=== PATIENT | male | born 1945 | race Two or more races ===

== ENCOUNTER 2021-01-19 18:14 | Emergency (ER) | payer OTHER ==
[2021-01-19 18:58] VITALS: BMI 23.3
[2021-01-19 19:36] LABS: BASO % 0.7 % (0-2.0); EOS % 3.5 % (0-4.5); HEMATOCRIT 27.7 % (35.4-49); HEMOGLOBIN 9.3 GM/dL (11.7-16.9); LYMPH % 34.7 % (8-40); MCH 29.9 pg (25.7-33.7); MCHC 33.6 g/dl (32.0-35.9); MEAN CELL VOLUME 88.8 fl (80-96); MEAN PLT VOLUME 7.8 fl (7.5-11.1); MONO % 17.1 % (3.8-10.2); PLATELET COUNT 176 10^3/uL (134-434); RBC 3.12 M/mm3 (4.00-5.60); RDW 14.3 % (11.9-15.9); WHITE BLOOD COUNT 4.4 K/mm3 (4.0-10.0)
[2021-01-19 19:43] LABS: INR 0.95 (0.83-1.09); PROTHROMBIN TIME (PATIENT) 10.6 SEC (9.7-13.0)
[2021-01-19 19:46] LABS: ACTIVATED PTT 31.1 SECONDS (25.2-36.5)
[2021-01-19 19:48] LABS: CHLORIDE 107 mmol/L (98-107); SODIUM 139 mmol/L (136-145)
[2021-01-19 19:51] LABS: ALBUMIN 3.1 g/dl (3.4-5.0); ANION GAP 5 MMOL/L (8-16); CO2 27 mmol/L (21-32); GLUCOSE,RANDOM 135 mg/dL (74-106)
[2021-01-19 19:54] LABS: CREATININE 2.5 mg/dL (0.55-1.3); SGOT/AST 25 U/L (15-37); SGPT/ALT 18 U/L (13-61)
[2021-01-19 19:56] LABS: BILIRUBIN,TOTAL 0.2 mg/dL (0.2-1); TOT PROT 7.1 g/dl (6.4-8.2)
[2021-01-19 19:57] LABS: ALK PHOS 85 U/L (45-117)
[2021-01-20 02:04] LABS: EPI CELLS 4 /uL (0-25.1); HYALINE CASTS 1 /uL (0-3.1); PH,URINE 8.5 (5.0-8.0); URINE APPEARANCE CLEAR; URINE BACTERIA 11 /uL (0-1359); URINE BILIRUBIN NEGATIVE (NEGATIVE); URINE COLOR YELLOW; URINE GLUCOSE (UA) NEGATIVE (NEGATIVE); URINE KETONE NEGATIVE (NEGATIVE); URINE LEUK ESTERASE NEGATIVE (NEGATIVE); URINE NITRITE NEGATIVE (NEGATIVE); URINE PROTEIN 3+ (NEGATIVE); URINE RBC 6 /uL (0-23.9); URINE UROBILINOGEN 0.2 mg/dL (0.2-1.0); URINE WBC 1 /uL (0-25.8)
[2021-01-20 02:52] VITALS: BP 145/57; PULSE 84; TEMP 100.1
[2021-01-20] MEDS ORDERED: ACETAMINOPHEN 325 MG TABLET (FP) PO ONE (02:58)
[2021-01-20] MEDS ORDERED: ACETAMINOPHEN 325 MG TABLET (FP) ONE (03:04)
== END 2021-01-20 03:15 | disposition home or self-care (01) ==
LOC: JER 18:14
DX: S00.03XA Contusion of scalp, initial encounter (principal); W19.XXXA Unspecified fall, initial encounter; Y92.9 Unspecified place or not applicable
CPT/HCPCS: 36415; 70450-TC; 71046-TC-FY; 72125-TC; 72170-TC-FY; 73552-TC-LT-FY; 73560-TC-LT-FY; 80053; 81003; 82550; 82553; 84484; 85025; 85610; 85730; 87077; 87086; 93005; 93010; 99284-25; C9803; U0003; U0005

== ENCOUNTER 2021-02-02 10:54 | Inpatient (IN) | payer OTHER ==
[2021-02-02 14:28] LABS: BASO % 0.6 % (0-2.0); EOS % 3.1 % (0-4.5); HEMATOCRIT 27.8 % (35.4-49); HEMOGLOBIN 9.2 GM/dL (11.7-16.9); LYMPH % 25.4 % (8-40); MCH 29.6 pg (25.7-33.7); MCHC 33.1 g/dl (32.0-35.9); MEAN CELL VOLUME 89.4 fl (80-96); MEAN PLT VOLUME 7.9 fl (7.5-11.1); NEUT % 56.9 % (42.8-82.8); PLATELET COUNT 207 10^3/uL (134-434); RBC 3.11 M/mm3 (4.00-5.60); WHITE BLOOD COUNT 4.4 K/mm3 (4.0-10.0)
[2021-02-02 14:52] LABS: CALCIUM 8.4 mg/dL (8.5-10.1)
[2021-02-02 14:53] LABS: ALBUMIN 3.1 g/dl (3.4-5.0); MAGNESIUM 3.3 mg/dL (1.8-2.4)
[2021-02-02 14:54] LABS: BLOOD UREA NITROGEN 41.8 mg/dL (7-18)
[2021-02-02 14:56] LABS: CREATININE 2.9 mg/dL (0.55-1.3)
[2021-02-02 14:58] LABS: BILIRUBIN,TOTAL 0.2 mg/dL (0.2-1); TOT PROT 7.3 g/dl (6.4-8.2)
[2021-02-02] MEDS ORDERED: LACTATED RINGERS SOLUTION 1000 ML INFUS.BAG IV ONE (15:00)
[2021-02-02] MEDS ORDERED: CALCIUM GLUC IN NACL, ISO-OSM 1 GM/50 ML BAG IVPB ONE (15:00)
[2021-02-02] MEDS ORDERED: INSULIN (NOVOLOG) ASPART 100 UNITS/ML 10ML VIAL SQ ONE (15:02)
[2021-02-02] MEDS ORDERED: DEXTROSE 50%-WATER - 25 GM/50 ML VIAL IVPUSH ONE (15:03)
[2021-02-02] MEDS ORDERED: DEXTROSE 50%-WATER 25 GM/50 ML DISP.SYRIN ONE (15:48)
[2021-02-02] MEDS ORDERED: CALCIUM GLUCONATE 10% - 1,000 MG/10 ML VIAL ONE (15:49)
[2021-02-02 17:23] LABS: EPI CELLS 14 /uL (0-25.1); HYALINE CASTS 1 /uL (0-3.1); URINE APPEARANCE CLEAR; URINE BACTERIA 7 /uL (0-1359); URINE BILIRUBIN NEGATIVE (NEGATIVE); URINE COLOR YELLOW; URINE GLUCOSE (UA) NEGATIVE (NEGATIVE); URINE KETONE NEGATIVE (NEGATIVE); URINE LEUK ESTERASE TRACE (NEGATIVE); URINE NITRITE NEGATIVE (NEGATIVE); URINE PROTEIN 4+ (NEGATIVE); URINE RBC 11 /uL (0-23.9); URINE UROBILINOGEN 0.2 mg/dL (0.2-1.0); URINE WBC 9 /uL (0-25.8)
[2021-02-02] MEDS ORDERED: SODIUM CHLORIDE 0.45% 1,000 ML IV SCH (20:00)
[2021-02-02] MEDS ORDERED: DOCUSATE SODIUM 100 MG CAPSULE (FP) PO SCH (20:00)
[2021-02-02] MEDS ORDERED: SODIUM ZIRCONIUM CYCLOSILICATE (LOKELMA) 5 GM PACKET PO ONE (20:21)
[2021-02-02 20:23] LABS: CALCIUM 8.3 mg/dL (8.5-10.1)
[2021-02-02 20:24] LABS: BLOOD UREA NITROGEN 42.2 mg/dL (7-18)
[2021-02-02 20:27] LABS: CREATININE 2.7 mg/dL (0.55-1.3)
[2021-02-02] MEDS ORDERED: levETIRAcetam 500 MG TABLET (FP) PO ONE (20:27)
[2021-02-02] MEDS ORDERED: SODIUM ZIRCONIUM CYCLOSILICATE (LOKELMA) 5 GM PACKET ONE (20:27)
[2021-02-02] MEDS ORDERED: hydrALAZINE HCL 25 MG TABLET (FP) ONE (20:27)
[2021-02-02] MEDS ORDERED: DOCUSATE SODIUM 100 MG CAPSULE (FP) PO ONE (20:28)
[2021-02-02] MEDS ORDERED: DONEPEZIL HCL 5 MG TABLET (FP) ONE (20:28)
[2021-02-02] MEDS: TERAZOSIN HCL 5 MG CAPSULE PO SCH (21:04)
[2021-02-02] MEDS: levETIRAcetam 500 MG TABLET (FP) PO SCH (21:05)
[2021-02-02] MEDS: DOCUSATE SODIUM 100 MG CAPSULE (FP) PO SCH (21:05)
[2021-02-02] MEDS: DONEPEZIL HCL 5 MG TABLET (FP) PO SCH (21:05)
[2021-02-02] MEDS: hydrALAZINE HCL 25 MG TABLET (FP) PO SCH (21:05)
[2021-02-02] MEDS ORDERED: ACETAMINOPHEN 325 MG TABLET (FP) PO PRN (21:40)
[2021-02-02] MEDS ORDERED: hydrALAZINE HCL 25 MG TABLET (FP) PO SCH (22:00)
[2021-02-03 04:33] VITALS: BMI 20.5
[2021-02-03] MEDS: CHOLECALCIFEROL (VIT D3) 1,000 UNIT (25 MCG) TABLET PO SCH (06:04)
[2021-02-03] MEDS: hydrALAZINE HCL 25 MG TABLET (FP) PO SCH ×3 (06:04→17:36)
[2021-02-03] MEDS: OXYBUTYNIN CHLORIDE 5 MG TABLET PO SCH ×2 (06:04→17:36)
[2021-02-03] MEDS: PANTOPRAZOLE 40 MG TABLET PO SCH (06:04)
[2021-02-03] MEDS ORDERED: PATIENT'S OWN MEDICATION (NON-FORMULARY) (Metoprolol Tartrate [Metoprolol Tartrate] 100 MG PO SCH (07:00)
[2021-02-03] MEDS ORDERED: PATIENT'S OWN MEDICATION (NON-FORMULARY) (Magnesium Oxide [Magnesium Oxide] 400 MG Tablet) PO SCH (07:00)
[2021-02-03 10:24] LABS: HEMATOCRIT 24.2 % (35.4-49); HEMOGLOBIN 8.1 GM/dL (11.7-16.9); MCH 29.9 pg (25.7-33.7); MCHC 33.5 g/dl (32.0-35.9); MEAN CELL VOLUME 89.3 fl (80-96); MEAN PLT VOLUME 8.2 fl (7.5-11.1); PLATELET COUNT 172 10^3/uL (134-434); RBC 2.71 M/mm3 (4.00-5.60); RDW 14.6 % (11.9-15.9); WHITE BLOOD COUNT 4.3 K/mm3 (4.0-10.0)
[2021-02-03] MEDS: amLODIPine BESYLATE 10 MG TABLET (FP) PO SCH (10:42)
[2021-02-03] MEDS: ASPIRIN COATED 81 MG TABLET.EC PO SCH (10:42)
[2021-02-03] MEDS: levETIRAcetam 500 MG TABLET (FP) PO SCH ×2 (10:42→21:09)
[2021-02-03 10:51] LABS: BLOOD UREA NITROGEN 36.3 mg/dL (7-18); MAGNESIUM 2.6 mg/dL (1.8-2.4)
[2021-02-03 10:54] LABS: CREATININE 2.6 mg/dL (0.55-1.3)
[2021-02-03 10:55] LABS: PHOSPHOROUS 3.7 mg/dL (2.5-4.9)
[2021-02-03] MEDS: LATANOPROST 0.005% OPHTH SOLN 2.5ML BOTTLE OU SCH (17:37)
[2021-02-03] MEDS ORDERED: PT OWN MED DRAWER 7, Y5N ONE ×2 (17:39→19:31)
[2021-02-03] MEDS: METOPROLOL TARTRATE 50 MG TABLET (FP) PO SCH (19:41)
[2021-02-03] MEDS: DONEPEZIL HCL 5 MG TABLET (FP) PO SCH (21:09)
[2021-02-03] MEDS: TERAZOSIN HCL 5 MG CAPSULE PO SCH (21:09)
[2021-02-03] MEDS: DOCUSATE SODIUM 100 MG CAPSULE (FP) PO SCH (21:09)
[2021-02-03] MEDS: HEPARIN NA (PORCINE) 5,000 UNITS/ML 1ML VIAL SQ SCH (21:09)
[2021-02-04] MEDS: METOPROLOL TARTRATE 50 MG TABLET (FP) PO SCH ×2 (06:01→16:23)
[2021-02-04] MEDS: CHOLECALCIFEROL (VIT D3) 1,000 UNIT (25 MCG) TABLET PO SCH (06:01)
[2021-02-04] MEDS: hydrALAZINE HCL 25 MG TABLET (FP) PO SCH ×3 (06:01→16:23)
[2021-02-04] MEDS: PANTOPRAZOLE 40 MG TABLET PO SCH (06:02)
[2021-02-04] MEDS: OXYBUTYNIN CHLORIDE 5 MG TABLET PO SCH ×2 (06:02→16:23)
[2021-02-04 09:35] LABS: HEMATOCRIT 24.8 % (35.4-49); HEMOGLOBIN 8.5 GM/dL (11.7-16.9); MCH 30.5 pg (25.7-33.7); MCHC 34.2 g/dl (32.0-35.9); MEAN CELL VOLUME 89.2 fl (80-96); MEAN PLT VOLUME 8.3 fl (7.5-11.1); PLATELET COUNT 189 10^3/uL (134-434); RBC 2.78 M/mm3 (4.00-5.60); RDW 14.4 % (11.9-15.9); WHITE BLOOD COUNT 4.1 K/mm3 (4.0-10.0)
[2021-02-04] MEDS: HEPARIN NA (PORCINE) 5,000 UNITS/ML 1ML VIAL SQ SCH ×2 (10:22→22:00)
[2021-02-04] MEDS: ASPIRIN COATED 81 MG TABLET.EC PO SCH (10:22)
[2021-02-04] MEDS: amLODIPine BESYLATE 10 MG TABLET (FP) PO SCH (10:23)
[2021-02-04] MEDS: levETIRAcetam 500 MG TABLET (FP) PO SCH ×2 (10:23→22:00)
[2021-02-04 10:24] LABS: BLOOD UREA NITROGEN 32.3 mg/dL (7-18); CALCIUM 8.2 mg/dL (8.5-10.1)
[2021-02-04 10:27] LABS: CHOLESTEROL 166 mg/dL (50-200); CREATININE 2.6 mg/dL (0.55-1.3); TRIGLYCERIDES 68 mg/dL (0-150)
[2021-02-04 10:28] LABS: LDL CHOLESTEROL (ONLY SJRH) 83 mg/dL (5-100)
[2021-02-04 10:30] LABS: HDL CHOLESTEROL 63 mg/dL (40-60)
[2021-02-04] MEDS: LATANOPROST 0.005% OPHTH SOLN 2.5ML BOTTLE OU SCH (16:39)
[2021-02-04] MEDS ORDERED: PT OWN MED DRAWER 7, Y5N ONE (20:53)
[2021-02-04] MEDS: DONEPEZIL HCL 5 MG TABLET (FP) PO SCH (21:59)
[2021-02-04] MEDS: TERAZOSIN HCL 5 MG CAPSULE PO SCH (21:59)
[2021-02-04] MEDS: DOCUSATE SODIUM 100 MG CAPSULE (FP) PO SCH (22:00)
[2021-02-05] MEDS: CHOLECALCIFEROL (VIT D3) 1,000 UNIT (25 MCG) TABLET PO SCH (06:32)
[2021-02-05] MEDS: hydrALAZINE HCL 25 MG TABLET (FP) PO SCH ×2 (06:32→11:36)
[2021-02-05] MEDS: OXYBUTYNIN CHLORIDE 5 MG TABLET PO SCH (06:32)
[2021-02-05] MEDS: METOPROLOL TARTRATE 50 MG TABLET (FP) PO SCH (06:32)
[2021-02-05] MEDS: PANTOPRAZOLE 40 MG TABLET PO SCH (06:32)
[2021-02-05] MEDS: HEPARIN NA (PORCINE) 5,000 UNITS/ML 1ML VIAL SQ SCH (09:07)
[2021-02-05] MEDS: amLODIPine BESYLATE 10 MG TABLET (FP) PO SCH (09:07)
[2021-02-05] MEDS: ASPIRIN COATED 81 MG TABLET.EC PO SCH (09:07)
[2021-02-05] MEDS: levETIRAcetam 500 MG TABLET (FP) PO SCH (09:07)
[2021-02-05 09:14] LABS: HEMATOCRIT 25.6 % (35.4-49); HEMOGLOBIN 8.7 GM/dL (11.7-16.9); MCH 30.4 pg (25.7-33.7); MCHC 33.9 g/dl (32.0-35.9); MEAN CELL VOLUME 89.5 fl (80-96); MEAN PLT VOLUME 8.2 fl (7.5-11.1); PLATELET COUNT 184 10^3/uL (134-434); RBC 2.86 M/mm3 (4.00-5.60); RDW 14.2 % (11.9-15.9); WHITE BLOOD COUNT 4.6 K/mm3 (4.0-10.0)
[2021-02-05 09:34] LABS: BLOOD UREA NITROGEN 36.4 mg/dL (7-18); CALCIUM 8.3 mg/dL (8.5-10.1); MAGNESIUM 2.3 mg/dL (1.8-2.4)
[2021-02-05 09:38] LABS: CREATININE 2.4 mg/dL (0.55-1.3)
[2021-02-05 15:47] VITALS: BP 157/68; PULSE 57; TEMP 97.8
== END 2021-02-05 15:52 | disposition home or self-care (01) | DRG 684 ==
LOC: JER 10:54 → JERBED 15:04 → J8W 02-03 03:59
PROVIDERS: ATTEND Internal Medicine
DX: N17.9 Acute kidney failure, unspecified (principal); I25.10 Atherosclerotic heart disease of native coronary artery without angina pectoris; F03.90 Unspecified dementia, unspecified severity, without behavioral disturbance, psychotic disturbance, mood disturbance, and anxiety; I12.9 Hypertensive chronic kidney disease with stage 1 through stage 4 chronic kidney disease, or unspecified chronic kidney disease; R25.1 Tremor, unspecified; N18.30 Chronic kidney disease, stage 3 unspecified; K21.9 Gastro-esophageal reflux disease without esophagitis; E87.5 Hyperkalemia; G40.909 Epilepsy, unspecified, not intractable, without status epilepticus
CPT/HCPCS: 36415; 70450-TC; 71045-TC-FY; 72125-TC; 76775-TC; 80048; 80053; 80061; 80177; 81003; 82550; 82553; 82570; 82962; 83036; 83735; 84100; 84156; 85025; 85027; 87077; 87086; 93005; 93010; 97116-GP; 97161-GP; 99285-25; C9803; J1644; U0003; U0005

== ENCOUNTER 2021-02-22 18:48 | Inpatient (IN) | payer OTHER ==
[2021-02-22] MEDS ORDERED: ACETAMINOPHEN 1000 MG/100 ML BAG IVPB ONE (19:56)
[2021-02-22] MEDS ORDERED: ACETAMINOPHEN INJECTION 100 ML IVPB ONE (20:39)
[2021-02-22 20:51] LABS: EPI CELLS 3 /uL (0-25.1); HYALINE CASTS 0 /uL (0-3.1); PH,URINE 7.5 (5.0-8.0); URINE APPEARANCE CLEAR; URINE BACTERIA 6 /uL (0-1359); URINE BILIRUBIN NEGATIVE (NEGATIVE); URINE COLOR YELLOW; URINE GLUCOSE (UA) NEGATIVE (NEGATIVE); URINE KETONE NEGATIVE (NEGATIVE); URINE LEUK ESTERASE NEGATIVE (NEGATIVE); URINE NITRITE NEGATIVE (NEGATIVE); URINE PROTEIN 3+ (NEGATIVE); URINE RBC 7 /uL (0-23.9); URINE UROBILINOGEN 0.2 mg/dL (0.2-1.0); URINE WBC 2 /uL (0-25.8)
[2021-02-22 21:04] LABS: CHLORIDE 108 mmol/L (98-107); SODIUM 137 mmol/L (136-145)
[2021-02-22 21:06] LABS: ANION GAP 6 MMOL/L (8-16); BLOOD UREA NITROGEN 37.9 mg/dL (7-18); CO2 24 mmol/L (21-32); GLUCOSE,RANDOM 94 mg/dL (74-106); LIPASE 59 U/L (73-393); MAGNESIUM 3.1 mg/dL (1.8-2.4)
[2021-02-22 21:07] LABS: BASO % 0.9 % (0-2.0); EOS % 2.4 % (0-4.5); HEMATOCRIT 25.8 % (35.4-49); HEMOGLOBIN 8.6 GM/dL (11.7-16.9); LYMPH % 29.7 % (8-40); MCH 29.6 pg (25.7-33.7); MCHC 33.2 g/dl (32.0-35.9); MEAN CELL VOLUME 89.2 fl (80-96); MEAN PLT VOLUME 8.5 fl (7.5-11.1); MONO % 15.5 % (3.8-10.2); NEUT % 51.5 % (42.8-82.8); PLATELET COUNT 195 10^3/uL (134-434); RBC 2.89 M/mm3 (4.00-5.60); RDW 14.3 % (11.9-15.9); WHITE BLOOD COUNT 4.9 K/mm3 (4.0-10.0)
[2021-02-22 21:09] LABS: CREATININE 2.8 mg/dL (0.55-1.3); SGOT/AST 16 U/L (15-37); SGPT/ALT 14 U/L (13-61)
[2021-02-22 21:11] LABS: BILIRUBIN,TOTAL 0.3 mg/dL (0.2-1); TOT PROT 6.6 g/dl (6.4-8.2)
[2021-02-22 21:12] LABS: ALK PHOS 78 U/L (45-117)
[2021-02-22 21:18] LABS: INR 1.05 (0.83-1.09); PROTHROMBIN TIME (PATIENT) 11.8 SEC (9.7-13.0)
[2021-02-22 21:20] LABS: ACTIVATED PTT 32.5 SECONDS (25.2-36.5)
[2021-02-23] MEDS ORDERED: ACETAMINOPHEN 325 MG TABLET (FP) PO PRN (04:38)
[2021-02-23] MEDS ORDERED: ASPIRIN 81 MG CHEWABLE TABLETS ONE (06:41)
[2021-02-23] MEDS ORDERED: amLODIPine BESYLATE 5 MG TABLET (FP) ONE (06:42)
[2021-02-23] MEDS ORDERED: levETIRAcetam 500 MG TABLET (FP) PO ONE (06:42)
[2021-02-23] MEDS ORDERED: HEPARIN NA (PORCINE) 5,000 UNITS/ML 1ML VIAL ONE (06:42)
[2021-02-23] MEDS ORDERED: CHOLECALCIFEROL (VIT D3) 1,000 UNIT (25 MCG) TABLET ONE (06:42)
[2021-02-23] MEDS: HEPARIN NA (PORCINE) 5,000 UNITS/ML 1ML VIAL SQ SCH ×3 (06:49→21:36)
[2021-02-23] MEDS: levETIRAcetam 500 MG TABLET (FP) PO SCH ×2 (06:49→21:00)
[2021-02-23] MEDS: ASPIRIN COATED 81 MG TABLET.EC PO SCH (06:49)
[2021-02-23] MEDS: CHOLECALCIFEROL (VIT D3) 1,000 UNIT (25 MCG) TABLET PO SCH (06:49)
[2021-02-23] MEDS: METOPROLOL TARTRATE 50 MG TABLET (FP) PO SCH ×2 (06:50→16:57)
[2021-02-23] MEDS: amLODIPine BESYLATE 5 MG TABLET (FP) PO SCH (06:50)
[2021-02-23] MEDS ORDERED: LACTOSE REDUCED FOOD PO SCH (07:00)
[2021-02-23] MEDS: PANTOPRAZOLE 40 MG TABLET PO SCH (07:58)
[2021-02-23] MEDS: OXYBUTYNIN CHLORIDE 5 MG TABLET PO SCH ×2 (07:58→17:15)
[2021-02-23] MEDS ORDERED: METOPROLOL TARTRATE 25 MG TABLET (FP) ONE (10:25)
[2021-02-23] MEDS ORDERED: METOPROLOL TARTRATE 50 MG TABLET (FP) ONE (10:26)
[2021-02-23 13:49] LABS: CALCIUM 8.3 mg/dL (8.5-10.1)
[2021-02-23 13:50] LABS: ALBUMIN 2.9 g/dl (3.4-5.0); BLOOD UREA NITROGEN 35.9 mg/dL (7-18)
[2021-02-23 13:53] LABS: PHOSPHOROUS 3.8 mg/dL (2.5-4.9)
[2021-02-23 13:54] LABS: URIC ACID 9.5 mg/dL (2.6-7.2)
[2021-02-23 13:55] LABS: BILIRUBIN,TOTAL 0.3 mg/dL (0.2-1)
[2021-02-23 13:57] LABS: TOT PROT 6.5 g/dl (6.4-8.2)
[2021-02-23] MEDS: hydrALAZINE HCL 25 MG TABLET (FP) PO SCH ×2 (14:20→21:35)
[2021-02-23 14:26] LABS: CREATININE 2.5 mg/dL (0.55-1.3)
[2021-02-23] MEDS: ACETAMINOPHEN 325 MG TABLET (FP) PO PRN (16:57)
[2021-02-23] MEDS: LATANOPROST 0.005% OPHTH SOLN 2.5ML BOTTLE OU SCH (17:14)
[2021-02-23 18:47] LABS: BASO % 0.5 % (0-2.0); EOS % 2.6 % (0-4.5); HEMATOCRIT 26.9 % (35.4-49); HEMOGLOBIN 8.8 GM/dL (11.7-16.9); LYMPH % 30.1 % (8-40); MCH 29.2 pg (25.7-33.7); MCHC 32.5 g/dl (32.0-35.9); MEAN CELL VOLUME 89.7 fl (80-96); MEAN PLT VOLUME 8.5 fl (7.5-11.1); MONO % 13.7 % (3.8-10.2); NEUT % 53.1 % (42.8-82.8); PLATELET COUNT 188 10^3/uL (134-434); RDW 13.9 % (11.9-15.9); WHITE BLOOD COUNT 4.3 K/mm3 (4.0-10.0)
[2021-02-23 19:05] LABS: GAMMA GLUTAMYL TRANSPEPTIDASE 21 U/L (5-85)
[2021-02-23] MEDS: TERAZOSIN HCL 5 MG CAPSULE PO SCH (21:00)
[2021-02-23] MEDS: DOCUSATE SODIUM 100 MG CAPSULE (FP) PO SCH (21:00)
[2021-02-23] MEDS: DONEPEZIL HCL 5 MG TABLET (FP) PO SCH (21:00)
[2021-02-23] MEDS ORDERED: PT OWN MED DRAWER 7, Y5N ONE (21:06)
[2021-02-24] MEDS: ACETAMINOPHEN 325 MG TABLET (FP) PO PRN ×2 (00:32→21:16)
[2021-02-24] MEDS ORDERED: levETIRAcetam 250 MG TABLET PO ONE (05:46)
[2021-02-24] MEDS: levETIRAcetam 500 MG TABLET (FP) PO SCH ×2 (06:07→21:17)
[2021-02-24] MEDS: ASPIRIN COATED 81 MG TABLET.EC PO SCH (06:08)
[2021-02-24] MEDS: amLODIPine BESYLATE 5 MG TABLET (FP) PO SCH (06:08)
[2021-02-24] MEDS: METOPROLOL TARTRATE 50 MG TABLET (FP) PO SCH ×2 (06:08→15:54)
[2021-02-24] MEDS: CHOLECALCIFEROL (VIT D3) 1,000 UNIT (25 MCG) TABLET PO SCH (06:08)
[2021-02-24] MEDS: PANTOPRAZOLE 40 MG TABLET PO SCH (06:09)
[2021-02-24] MEDS: OXYBUTYNIN CHLORIDE 5 MG TABLET PO SCH ×2 (06:09→15:56)
[2021-02-24] MEDS: HEPARIN NA (PORCINE) 5,000 UNITS/ML 1ML VIAL SQ SCH ×3 (06:09→21:17)
[2021-02-24] MEDS: hydrALAZINE HCL 25 MG TABLET (FP) PO SCH ×3 (06:09→21:16)
[2021-02-24 09:24] LABS: HEMATOCRIT 26.9 % (35.4-49); HEMOGLOBIN 8.9 GM/dL (11.7-16.9); MCH 29.6 pg (25.7-33.7); MCHC 33.2 g/dl (32.0-35.9); MEAN CELL VOLUME 89.1 fl (80-96); MEAN PLT VOLUME 8.3 fl (7.5-11.1); PLATELET COUNT 189 10^3/uL (134-434); RBC 3.01 M/mm3 (4.00-5.60); RDW 14.3 % (11.9-15.9); WHITE BLOOD COUNT 4.1 K/mm3 (4.0-10.0)
[2021-02-24 09:47] LABS: ALBUMIN 2.8 g/dl (3.4-5.0); CALCIUM 8.2 mg/dL (8.5-10.1)
[2021-02-24 09:48] LABS: BLOOD UREA NITROGEN 34.3 mg/dL (7-18)
[2021-02-24 09:51] LABS: CREATININE 2.4 mg/dL (0.55-1.3)
[2021-02-24 09:52] LABS: BILIRUBIN,TOTAL 0.5 mg/dL (0.2-1); TOT PROT 6.4 g/dl (6.4-8.2)
[2021-02-24] MEDS ORDERED: PT OWN MED DRAWER 7, Y5N ONE ×2 (15:53→20:45)
[2021-02-24] MEDS: LATANOPROST 0.005% OPHTH SOLN 2.5ML BOTTLE OU SCH (15:57)
[2021-02-24] MEDS: DONEPEZIL HCL 5 MG TABLET (FP) PO SCH (21:16)
[2021-02-24] MEDS: TERAZOSIN HCL 5 MG CAPSULE PO SCH (21:17)
[2021-02-24] MEDS: DOCUSATE SODIUM 100 MG CAPSULE (FP) PO SCH (21:17)
[2021-02-25] MEDS: CHOLECALCIFEROL (VIT D3) 1,000 UNIT (25 MCG) TABLET PO SCH (06:06)
[2021-02-25] MEDS: hydrALAZINE HCL 25 MG TABLET (FP) PO SCH ×3 (06:06→21:55)
[2021-02-25] MEDS: ASPIRIN COATED 81 MG TABLET.EC PO SCH (06:06)
[2021-02-25] MEDS: levETIRAcetam 500 MG TABLET (FP) PO SCH ×2 (06:06→21:58)
[2021-02-25] MEDS: OXYBUTYNIN CHLORIDE 5 MG TABLET PO SCH ×2 (06:06→16:29)
[2021-02-25] MEDS: PANTOPRAZOLE 40 MG TABLET PO SCH (06:06)
[2021-02-25] MEDS: amLODIPine BESYLATE 5 MG TABLET (FP) PO SCH (06:06)
[2021-02-25] MEDS: METOPROLOL TARTRATE 50 MG TABLET (FP) PO SCH ×2 (06:06→15:15)
[2021-02-25] MEDS: ACETAMINOPHEN 325 MG TABLET (FP) PO PRN (06:07)
[2021-02-25] MEDS: HEPARIN NA (PORCINE) 5,000 UNITS/ML 1ML VIAL SQ SCH ×3 (06:07→21:55)
[2021-02-25 09:47] LABS: HEMATOCRIT 26.7 % (35.4-49); HEMOGLOBIN 8.9 GM/dL (11.7-16.9); MCH 29.9 pg (25.7-33.7); MCHC 33.5 g/dl (32.0-35.9); MEAN CELL VOLUME 89.3 fl (80-96); MEAN PLT VOLUME 8.6 fl (7.5-11.1); PLATELET COUNT 196 10^3/uL (134-434); RBC 2.99 M/mm3 (4.00-5.60); RDW 13.9 % (11.9-15.9); WHITE BLOOD COUNT 4.2 K/mm3 (4.0-10.0)
[2021-02-25 10:08] LABS: CALCIUM 7.9 mg/dL (8.5-10.1)
[2021-02-25 10:09] LABS: ALBUMIN 2.5 g/dl (3.4-5.0); BLOOD UREA NITROGEN 34.2 mg/dL (7-18); MAGNESIUM 2.5 mg/dL (1.8-2.4)
[2021-02-25 10:12] LABS: CREATININE 2.6 mg/dL (0.55-1.3); PHOSPHOROUS 4.2 mg/dL (2.5-4.9)
[2021-02-25 10:14] LABS: BILIRUBIN,TOTAL 0.4 mg/dL (0.2-1); TOT PROT 6.3 g/dl (6.4-8.2)
[2021-02-25 11:16] LABS: ERYTHROCYTE SEDIMENTATION RATE 73 mm/hr (0-20)
[2021-02-25 12:57] VITALS: BMI 22.8
[2021-02-25] MEDS ORDERED: PT OWN MED DRAWER 7, Y5N ONE ×2 (15:05→21:33)
[2021-02-25] MEDS: LATANOPROST 0.005% OPHTH SOLN 2.5ML BOTTLE OU SCH (16:29)
[2021-02-25] MEDS: DOCUSATE SODIUM 100 MG CAPSULE (FP) PO SCH (21:55)
[2021-02-25] MEDS: DONEPEZIL HCL 5 MG TABLET (FP) PO SCH (21:55)
[2021-02-25] MEDS: TERAZOSIN HCL 5 MG CAPSULE PO SCH (21:56)
[2021-02-26 00:07] LABS: CARCINOEMBRYONIC ANTIGEN 3.7 ng/mL (0.0-4.7)
[2021-02-26] MEDS: amLODIPine BESYLATE 5 MG TABLET (FP) PO SCH (06:17)
[2021-02-26] MEDS: hydrALAZINE HCL 25 MG TABLET (FP) PO SCH ×3 (06:17→21:26)
[2021-02-26] MEDS: ASPIRIN COATED 81 MG TABLET.EC PO SCH (06:17)
[2021-02-26] MEDS: CHOLECALCIFEROL (VIT D3) 1,000 UNIT (25 MCG) TABLET PO SCH (06:18)
[2021-02-26] MEDS: PANTOPRAZOLE 40 MG TABLET PO SCH (06:18)
[2021-02-26] MEDS: HEPARIN NA (PORCINE) 5,000 UNITS/ML 1ML VIAL SQ SCH ×3 (06:18→21:25)
[2021-02-26] MEDS ORDERED: PT OWN MED DRAWER 7, Y5N ONE ×3 (06:19→17:13)
[2021-02-26] MEDS: METOPROLOL TARTRATE 50 MG TABLET (FP) PO SCH ×2 (06:20→17:15)
[2021-02-26] MEDS: levETIRAcetam 500 MG TABLET (FP) PO SCH ×2 (06:20→21:30)
[2021-02-26] MEDS: OXYBUTYNIN CHLORIDE 5 MG TABLET PO SCH ×2 (06:22→17:15)
[2021-02-26 11:30] LABS: HEMATOCRIT 25.3 % (35.4-49); HEMOGLOBIN 8.4 GM/dL (11.7-16.9); MCH 29.8 pg (25.7-33.7); MCHC 33.4 g/dl (32.0-35.9); MEAN CELL VOLUME 89.3 fl (80-96); MEAN PLT VOLUME 8.6 fl (7.5-11.1); PLATELET COUNT 189 10^3/uL (134-434); RBC 2.83 M/mm3 (4.00-5.60); RDW 14.1 % (11.9-15.9)
[2021-02-26 11:57] LABS: CALCIUM 7.7 mg/dL (8.5-10.1)
[2021-02-26 11:58] LABS: BLOOD UREA NITROGEN 34.1 mg/dL (7-18)
[2021-02-26 12:01] LABS: CREATININE 2.7 mg/dL (0.55-1.3)
[2021-02-26 13:12] LABS: HOMOCYSTINE-PLASMA OR SERUM 16.6 umol/L (0.0-19.2)
[2021-02-26] MEDS: LATANOPROST 0.005% OPHTH SOLN 2.5ML BOTTLE OU SCH (17:15)
[2021-02-26] MEDS: DOCUSATE SODIUM 100 MG CAPSULE (FP) PO SCH (21:25)
[2021-02-26] MEDS: DONEPEZIL HCL 5 MG TABLET (FP) PO SCH (21:25)
[2021-02-26] MEDS: TERAZOSIN HCL 5 MG CAPSULE PO SCH (21:29)
[2021-02-26 23:35] VITALS: BP 134/67; PULSE 70; TEMP 98.6
[2021-03-01 17:06] LABS: TOTAL PROTEIN, URINE 501.1 mg/dL (Not Estab.)
== END 2021-02-27 00:02 | DRG 74 ==
LOC: JER 18:48 → JERBED 02-23 00:57 → J6S 02-23 13:46
PROVIDERS: ADMIT Internal Medicine; ATTEND Internal Medicine
DX: G62.9 Polyneuropathy, unspecified (principal); J90 Pleural effusion, not elsewhere classified; J98.11 Atelectasis; I25.10 Atherosclerotic heart disease of native coronary artery without angina pectoris; K21.9 Gastro-esophageal reflux disease without esophagitis; I12.9 Hypertensive chronic kidney disease with stage 1 through stage 4 chronic kidney disease, or unspecified chronic kidney disease; N18.30 Chronic kidney disease, stage 3 unspecified; F03.90 Unspecified dementia, unspecified severity, without behavioral disturbance, psychotic disturbance, mood disturbance, and anxiety; D63.8 Anemia in other chronic diseases classified elsewhere; R10.9 Unspecified abdominal pain; R26.81 Unsteadiness on feet; G40.909 Epilepsy, unspecified, not intractable, without status epilepticus; E87.5 Hyperkalemia; M48.07 Spinal stenosis, lumbosacral region
CPT/HCPCS: 36415; 70450-TC; 71045-TC-FY; 72131-TC; 74176-TC; 80048; 80053; 81003; 82085; 82378; 82550; 82607; 82728; 82977; 83036; 83090; 83516; 83540; 83550; 83605; 83690; 83735; 84100; 84155; 84156; 84157; 84165; 84443; 84484; 84550; 85025; 85027; 85045; 85610; 85651; 85730; 86038; 86256; 87086; 93005; 93010; 95860-TC; 97116-GP; 97162-GP; 99285-25; C9803-CS; J1644; U0003; U0005

== ENCOUNTER 2021-05-11 12:56 | Observation (INO) | payer OTHER ==
[2021-05-11 15:50] LABS: BASO % 0.4 % (0-2.0); EOS % 2.4 % (0-4.5); HEMATOCRIT 27.9 % (35.4-49); HEMOGLOBIN 9.1 GM/dL (11.7-16.9); LYMPH % 24.8 % (8-40); MCH 29.2 pg (25.7-33.7); MCHC 32.8 g/dl (32.0-35.9); MEAN CELL VOLUME 89.2 fl (80-96); MEAN PLT VOLUME 7.9 fl (7.5-11.1); MONO % 10.4 % (3.8-10.2); PLATELET COUNT 181 10^3/uL (134-434); RBC 3.13 M/mm3 (4.00-5.60); RDW 14.2 % (11.9-15.9); WHITE BLOOD COUNT 4.6 K/mm3 (4.0-10.0)
[2021-05-11 16:02] LABS: INR 0.98 (0.83-1.09); PROTHROMBIN TIME (PATIENT) 11.3 SEC (9.7-13.0)
[2021-05-11 16:12] LABS: CALCIUM 8.4 mg/dL (8.5-10.1)
[2021-05-11 16:14] LABS: BLOOD UREA NITROGEN 46.8 mg/dL (7-18); MAGNESIUM 2.4 mg/dL (1.8-2.4)
[2021-05-11 16:15] LABS: CHOLESTEROL 182 mg/dL (50-200); TRIGLYCERIDES 113 mg/dL (0-150)
[2021-05-11 16:16] LABS: LDL CHOLESTEROL (ONLY SJRH) 100 mg/dL (5-100)
[2021-05-11 16:17] LABS: CREATININE 2.8 mg/dL (0.55-1.3)
[2021-05-11 16:18] LABS: BILIRUBIN,TOTAL 0.5 mg/dL (0.2-1); HDL CHOLESTEROL 63 mg/dL (40-60); TOT PROT 7.1 g/dl (6.4-8.2)
[2021-05-11 18:26] LABS: EPI CELLS 11 /uL (0-25.1); HYALINE CASTS 2 /uL (0-3.1); PH,URINE 5.5 (5.0-8.0); URINE APPEARANCE CLEAR; URINE BACTERIA 4 /uL (0-1359); URINE BILIRUBIN NEGATIVE (NEGATIVE); URINE COLOR YELLOW; URINE GLUCOSE (UA) NEGATIVE (NEGATIVE); URINE KETONE NEGATIVE (NEGATIVE); URINE LEUK ESTERASE NEGATIVE (NEGATIVE); URINE NITRITE NEGATIVE (NEGATIVE); URINE PROTEIN 4+ (NEGATIVE); URINE RBC 10 /uL (0-23.9); URINE UROBILINOGEN 0.2 mg/dL (0.2-1.0); URINE WBC 10 /uL (0-25.8)
[2021-05-11] MEDS ORDERED: INSULIN SLIDING SCALE (NOVOLOG) 1 VIAL SQ SCH (22:00)
[2021-05-11] MEDS ORDERED: KEPPRA 1000 MG PO SCH (22:00)
[2021-05-11] MEDS ORDERED: levETIRAcetam 500 MG TABLET (FP) PO ONE (23:21)
[2021-05-11] MEDS ORDERED: HEPARIN NA (PORCINE) 5,000 UNITS/ML 1ML VIAL ONE (23:21)
[2021-05-11] MEDS ORDERED: hydrALAZINE HCL 25 MG TABLET (FP) ONE (23:21)
[2021-05-11] MEDS: levETIRAcetam 500 MG TABLET (FP) PO SCH (23:48)
[2021-05-11] MEDS: hydrALAZINE HCL 25 MG TABLET (FP) PO SCH (23:48)
[2021-05-11] MEDS: HEPARIN NA (PORCINE) 5,000 UNITS/ML 1ML VIAL SQ SCH (23:48)
[2021-05-12] MEDS: OXYBUTYNIN CHLORIDE 5 MG TABLET PO SCH ×3 (01:18→22:41)
[2021-05-12] MEDS: LATANOPROST 0.005% OPHTH SOLN 2.5ML BOTTLE OU SCH ×2 (01:18→22:41)
[2021-05-12] MEDS ORDERED: GABAPENTIN 100 MG CAPSULE PO ONE (04:30)
[2021-05-12] MEDS ORDERED: HEPARIN NA (PORCINE) 5,000 UNITS/ML 1ML VIAL ONE ×3 (06:18→22:21)
[2021-05-12] MEDS ORDERED: hydrALAZINE HCL 25 MG TABLET (FP) ONE ×3 (06:18→22:21)
[2021-05-12] MEDS: HEPARIN NA (PORCINE) 5,000 UNITS/ML 1ML VIAL SQ SCH ×3 (06:23→22:41)
[2021-05-12] MEDS: hydrALAZINE HCL 25 MG TABLET (FP) PO SCH ×3 (06:23→22:40)
[2021-05-12] MEDS ORDERED: ACETAMINOPHEN 325 MG TABLET (FP) PO PRN (07:30)
[2021-05-12 08:08] LABS: HEMATOCRIT 31.8 % (35.4-49); HEMOGLOBIN 10.5 GM/dL (11.7-16.9); MCH 29.4 pg (25.7-33.7); MCHC 32.9 g/dl (32.0-35.9); MEAN CELL VOLUME 89.3 fl (80-96); MEAN PLT VOLUME 8.5 fl (7.5-11.1); PLATELET COUNT 192 10^3/uL (134-434); RBC 3.56 M/mm3 (4.00-5.60); WHITE BLOOD COUNT 4.3 K/mm3 (4.0-10.0)
[2021-05-12 08:57] LABS: BLOOD UREA NITROGEN 45.2 mg/dL (7-18); CALCIUM 8.8 mg/dL (8.5-10.1); CREATININE 2.6 mg/dL (0.55-1.3); MAGNESIUM 2.3 mg/dL (1.8-2.4); PHOSPHOROUS 3.3 mg/dL (2.5-4.9)
[2021-05-12] MEDS ORDERED: levETIRAcetam 500 MG TABLET (FP) PO ONE ×2 (09:10→22:21)
[2021-05-12] MEDS ORDERED: DONEPEZIL HCL 5 MG TABLET (FP) ONE (09:10)
[2021-05-12] MEDS ORDERED: ASPIRIN 81 MG CHEWABLE TABLETS ONE (09:10)
[2021-05-12] MEDS ORDERED: DOCUSATE SODIUM 100 MG CAPSULE (FP) PO ONE (09:10)
[2021-05-12] MEDS ORDERED: amLODIPine BESYLATE 10 MG TABLET (FP) ONE (09:10)
[2021-05-12] MEDS: DONEPEZIL HCL 5 MG TABLET (FP) PO SCH (09:16)
[2021-05-12] MEDS: levETIRAcetam 500 MG TABLET (FP) PO SCH ×2 (09:17→22:41)
[2021-05-12] MEDS: amLODIPine BESYLATE 10 MG TABLET (FP) PO SCH (09:17)
[2021-05-12] MEDS: ASPIRIN 81 MG CHEWABLE TABLETS PO SCH (09:17)
[2021-05-12] MEDS: DOCUSATE SODIUM 100 MG CAPSULE (FP) PO SCH (09:17)
[2021-05-12] MEDS ORDERED: TERAZOSIN HCL 5 MG CAPSULE PO SCH (11:45)
[2021-05-12] MEDS: TERAZOSIN HCL 5 MG CAPSULE PO SCH (12:30)
[2021-05-12 18:07] LABS: SARS-CoV-2 NAA Not Detected (Not Detected)
[2021-05-12] MEDS ORDERED: METOPROLOL TARTRATE 50 MG TABLET (FP) ONE (22:21)
[2021-05-12] MEDS: METOPROLOL TARTRATE 50 MG TABLET (FP) PO SCH (22:41)
[2021-05-13] MEDS ORDERED: hydrALAZINE HCL 25 MG TABLET (FP) ONE ×2 (06:05→12:53)
[2021-05-13] MEDS ORDERED: HEPARIN NA (PORCINE) 5,000 UNITS/ML 1ML VIAL ONE ×2 (06:05→14:36)
[2021-05-13] MEDS: HEPARIN NA (PORCINE) 5,000 UNITS/ML 1ML VIAL SQ SCH ×3 (06:14→22:16)
[2021-05-13] MEDS: hydrALAZINE HCL 25 MG TABLET (FP) PO SCH (06:14)
[2021-05-13] MEDS ORDERED: LOSARTAN POTASSIUM 50 MG TABLET PO SCH ×2 (09:25→10:00)
[2021-05-13 09:52] LABS: CALCIUM 8.4 mg/dL (8.5-10.1)
[2021-05-13 09:56] LABS: CREATININE 2.3 mg/dL (0.55-1.3)
[2021-05-13] MEDS ORDERED: DOCUSATE SODIUM 100 MG CAPSULE (FP) PO ONE (10:05)
[2021-05-13] MEDS ORDERED: levETIRAcetam 500 MG TABLET (FP) PO ONE (10:05)
[2021-05-13] MEDS ORDERED: METOPROLOL TARTRATE 50 MG TABLET (FP) ONE (10:05)
[2021-05-13] MEDS ORDERED: LOSARTAN POTASSIUM 50 MG TABLET ONE (10:05)
[2021-05-13] MEDS ORDERED: ASPIRIN 81 MG CHEWABLE TABLETS ONE (10:05)
[2021-05-13] MEDS ORDERED: DONEPEZIL HCL 5 MG TABLET (FP) ONE (10:07)
[2021-05-13] MEDS ORDERED: amLODIPine BESYLATE 10 MG TABLET (FP) ONE (10:07)
[2021-05-13] MEDS: OXYBUTYNIN CHLORIDE 5 MG TABLET PO SCH ×2 (10:11→22:16)
[2021-05-13] MEDS: METOPROLOL TARTRATE 50 MG TABLET (FP) PO SCH ×2 (10:11→22:17)
[2021-05-13] MEDS: DONEPEZIL HCL 5 MG TABLET (FP) PO SCH (10:11)
[2021-05-13] MEDS: amLODIPine BESYLATE 10 MG TABLET (FP) PO SCH (10:11)
[2021-05-13] MEDS: DOCUSATE SODIUM 100 MG CAPSULE (FP) PO SCH (10:11)
[2021-05-13] MEDS: ASPIRIN 81 MG CHEWABLE TABLETS PO SCH (10:11)
[2021-05-13] MEDS: levETIRAcetam 500 MG TABLET (FP) PO SCH (10:11)
[2021-05-13] MEDS ORDERED: INSULIN (LEVEMIR) 100 UNITS/ML UNITS SQ ONE (12:48)
[2021-05-13] MEDS: hydrALAZINE HCL 50 MG TABLET (FP) PO SCH ×2 (14:34→22:16)
[2021-05-13] MEDS ORDERED: ACETAMINOPHEN 325 MG TABLET (FP) ONE (20:51)
[2021-05-13] MEDS ORDERED: levETIRAcetam 500 MG TABLET (FP) PO SCH (22:00)
[2021-05-13] MEDS ORDERED: ACETAMINOPHEN 325 MG TABLET (FP) PO PRN (22:14)
[2021-05-13] MEDS: TERAZOSIN HCL 5 MG CAPSULE PO SCH (22:16)
[2021-05-13] MEDS: LATANOPROST 0.005% OPHTH SOLN 2.5ML BOTTLE OU SCH (22:17)
[2021-05-14 03:44] VITALS: BMI 18.6
[2021-05-14] MEDS: hydrALAZINE HCL 50 MG TABLET (FP) PO SCH ×2 (06:30→15:01)
[2021-05-14] MEDS: HEPARIN NA (PORCINE) 5,000 UNITS/ML 1ML VIAL SQ SCH ×2 (06:30→15:01)
[2021-05-14] MEDS ORDERED: METOPROLOL TARTRATE 50 MG TABLET (FP) PO SCH (10:00)
[2021-05-14] MEDS ORDERED: amLODIPine BESYLATE 10 MG TABLET (FP) PO SCH (10:00)
[2021-05-14] MEDS ORDERED: DOCUSATE SODIUM 100 MG CAPSULE (FP) PO SCH (10:00)
[2021-05-14] MEDS ORDERED: DONEPEZIL HCL 5 MG TABLET (FP) PO SCH (10:00)
[2021-05-14] MEDS ORDERED: ASPIRIN 81 MG CHEWABLE TABLETS PO SCH (10:00)
[2021-05-14] MEDS ORDERED: LOSARTAN POTASSIUM 50 MG TABLET PO SCH (10:00)
[2021-05-14] MEDS ORDERED: levETIRAcetam 500 MG TABLET (FP) PO SCH (10:00)
[2021-05-14] MEDS ORDERED: OXYBUTYNIN CHLORIDE 5 MG TABLET PO SCH (10:00)
[2021-05-14 16:52] VITALS: BP 142/57; PULSE 56; TEMP 98.7
[2021-05-14] MEDS ORDERED: LATANOPROST 0.005% OPHTH SOLN 2.5ML BOTTLE OU SCH (22:00)
[2021-05-14] MEDS ORDERED: TERAZOSIN HCL 5 MG CAPSULE PO SCH (22:00)
== END 2021-05-14 17:27 ==
LOC: JER 12:56 → JERBED 14:20 → J6S 05-13 22:06
PROVIDERS: ADMIT Internal Medicine; ATTEND Internal Medicine
PROC: 3E023GC Introduction of Other Therapeutic Substance into Muscle, Percutaneous Approach (ICD-10-PCS; principal; 2021-05-11)
DX: I25.10 Atherosclerotic heart disease of native coronary artery without angina pectoris (principal); I13.10 Hypertensive heart and chronic kidney disease without heart failure, with stage 1 through stage 4 chronic kidney disease, or unspecified chronic kidney disease; N18.9 Chronic kidney disease, unspecified; R80.9 Proteinuria, unspecified; K21.9 Gastro-esophageal reflux disease without esophagitis; G40.909 Epilepsy, unspecified, not intractable, without status epilepticus; E87.5 Hyperkalemia; F03.90 Unspecified dementia, unspecified severity, without behavioral disturbance, psychotic disturbance, mood disturbance, and anxiety; W18.39XA Other fall on same level, initial encounter; Y93.89 Activity, other specified; Y92.009 Unspecified place in unspecified non-institutional (private) residence as the place of occurrence of the external cause
CPT/HCPCS: 36415; 70450-TC; 71045-TC-FY; 72125-TC; 72170-TC-FY; 73502-TC-LT-FY; 73552-TC-LT-FY; 73562-TC-LT-FY; 80048; 80053; 80061; 81003; 82550; 82570; 82962; 83036; 83735; 84100; 84156; 84443; 84484; 85025; 85027; 85610; 85730; 86850; 86900; 86901; 87086; 93005; 93010; 93880-TC; 96372; 97116-GP; 99285-25; C9803-CS; G0378; J1644; U0003; U0005

== ENCOUNTER 2021-08-26 21:44 | Inpatient (IN) | payer OTHER ==
[2021-08-26 22:45] LABS: ARTERIAL BLD GAS O2 SATURATION 97.9 % (95-98); ARTERIAL BLOOD GAS BASE EXCESS -6.3 mmol/L (-2-2); ARTERIAL BLOOD GAS PO2 108.3 mmHg (80-100); ARTERIAL BLOOD GAS pH 7.362 (7.350-7.450)
[2021-08-26 23:06] LABS: BASO % 0.9 % (0-2.0); EOS % 8.1 % (0-4.5); HEMATOCRIT 23.2 % (35.4-49); HEMOGLOBIN 7.7 GM/dL (11.7-16.9); LYMPH % 29.7 % (8-40); MCH 29.3 pg (25.7-33.7); MCHC 33.4 g/dl (32.0-35.9); MEAN CELL VOLUME 87.8 fl (80-96); MEAN PLT VOLUME 7.7 fl (7.5-11.1); MONO % 16.6 % (3.8-10.2); NEUT % 44.7 % (42.8-82.8); PLATELET COUNT 186 10^3/uL (134-434); RBC 2.64 M/mm3 (4.00-5.60); RDW 15.2 % (11.9-15.9); WHITE BLOOD COUNT 4.4 K/mm3 (4.0-10.0)
[2021-08-26 23:13] LABS: CALCIUM 7.6 mg/dL (8.5-10.1)
[2021-08-26 23:14] LABS: ALBUMIN 3.2 g/dl (3.4-5.0); BLOOD UREA NITROGEN 50.2 mg/dL (7-18)
[2021-08-26 23:17] LABS: CREATININE 2.9 mg/dL (0.55-1.3); INR 1.05 (0.83-1.09); PROTHROMBIN TIME (PATIENT) 12.1 SEC (9.7-13.0)
[2021-08-26 23:19] LABS: BILIRUBIN,TOTAL 0.2 mg/dL (0.2-1); TOT PROT 6.7 g/dl (6.4-8.2)
[2021-08-26 23:20] LABS: ACTIVATED PTT 34.1 SECONDS (25.2-36.5)
[2021-08-26 23:22] LABS: N-TERMINAL BNP 7527.1 pg/ml (5-450)
[2021-08-26] MEDS ORDERED: FUROSEMIDE 40 MG/4 ML INJECTABLE VIAL IVPUSH ONE (23:40)
[2021-08-26] MEDS ORDERED: PIPERACILLIN/TAZOB 3.375 GM 3.375 GM in DEXTROSE 5%-WATER - 50 ML IVPB ONE (23:40)
[2021-08-26] MEDS ORDERED: VANCOMYCIN 1 GM in D5W (PRE-DOCKED) 1,000 MG/250 ML IVPB ONE (23:40)
[2021-08-27] MEDS ORDERED: PIPERACILLIN/TAZOB 3.375 GM 3.375 GM/50 ML BAG IVPB ONE (00:10)
[2021-08-27] MEDS ORDERED: FUROSEMIDE 40 MG/4 ML INJECTABLE VIAL ONE ×2 (00:10→04:09)
[2021-08-27] MEDS ORDERED: VANCOMYCIN 1 GRAM (PRE-DOCKED) 1,000 MG/250 ML BAG IVPB ONE (00:10)
[2021-08-27] MEDS ORDERED: FUROSEMIDE 40 MG/4 ML INJECTABLE VIAL IVPUSH SCH (03:37)
[2021-08-27] MEDS ORDERED: FUROSEMIDE 40 MG/4 ML INJECTABLE VIAL IVPUSH ONE (03:38)
[2021-08-27 05:29] LABS: EPI CELLS 2 /uL (0-25.1); HYALINE CASTS 1 /uL (0-3.1); PH,URINE 5.5 (5.0-8.0); URINE APPEARANCE CLEAR; URINE BACTERIA 1 /uL (0-1359); URINE BILIRUBIN NEGATIVE (NEGATIVE); URINE COLOR YELLOW; URINE GLUCOSE (UA) NEGATIVE (NEGATIVE); URINE KETONE NEGATIVE (NEGATIVE); URINE LEUK ESTERASE NEGATIVE (NEGATIVE); URINE NITRITE NEGATIVE (NEGATIVE); URINE PROTEIN 2+ (NEGATIVE); URINE RBC 3 /uL (0-23.9); URINE UROBILINOGEN 0.2 mg/dL (0.2-1.0); URINE WBC 2 /uL (0-25.8)
[2021-08-27] MEDS ORDERED: PIPERACILLIN/TAZOB 2.25 GM 2.25 GM/50 ML BAG IVPB ONE (09:24)
[2021-08-27] MEDS: PIPERACILLIN/TAZOB 2.25 GM 2.25 GM in DEXTROSE 5%-WATER - 50 ML IVPB SCH ×3 (09:36→21:49)
[2021-08-27] MEDS: levETIRAcetam 500 MG TABLET (FP) PO SCH ×2 (10:34→21:49)
[2021-08-27] MEDS: HEPARIN NA (PORCINE) 5,000 UNITS/ML 1ML VIAL SQ SCH ×3 (11:06→21:49)
[2021-08-27] MEDS: FUROSEMIDE 40 MG/4 ML INJECTABLE VIAL IVPUSH SCH (11:49)
[2021-08-27 14:28] LABS: CALCIUM 7.9 mg/dL (8.5-10.1)
[2021-08-27 14:29] LABS: ALBUMIN 3.1 g/dl (3.4-5.0); MAGNESIUM 2.2 mg/dL (1.8-2.4)
[2021-08-27 14:31] LABS: PHOSPHOROUS 3.6 mg/dL (2.5-4.9)
[2021-08-27 14:32] LABS: CREATININE 2.8 mg/dL (0.55-1.3); TOT PROT 6.5 g/dl (6.4-8.2)
[2021-08-27 14:33] LABS: BILIRUBIN,TOTAL 0.3 mg/dL (0.2-1)
[2021-08-27] MEDS ORDERED: PIPERACILLIN/TAZOBACTAM 2.25 GM VIAL IVPB ONE ×2 (16:03→21:42)
[2021-08-27] MEDS ORDERED: DEXTROSE 5%-WATER - 50 ML IVPB ONE ×2 (16:04→21:42)
[2021-08-28] MEDS ORDERED: VANCOMYCIN 1 GM in D5W (PRE-DOCKED) 1,000 MG/250 ML IVPB SCH (01:00)
[2021-08-28] MEDS ORDERED: DEXTROSE 5%-WATER - 50 ML IVPB ONE ×2 (03:46→17:11)
[2021-08-28] MEDS ORDERED: PIPERACILLIN/TAZOBACTAM 2.25 GM VIAL IVPB ONE ×2 (03:46→17:10)
[2021-08-28] MEDS: PIPERACILLIN/TAZOB 2.25 GM 2.25 GM in DEXTROSE 5%-WATER - 50 ML IVPB SCH ×2 (03:53→17:56)
[2021-08-28] MEDS ORDERED: amLODIPine BESYLATE 5 MG TABLET (FP) PO ONE ×2 (05:11→05:45)
[2021-08-28] MEDS: HEPARIN NA (PORCINE) 5,000 UNITS/ML 1ML VIAL SQ SCH ×3 (05:36→22:01)
[2021-08-28 07:24] LABS: BASO % 0.6 % (0-2.0); EOS % 8.6 % (0-4.5); HEMATOCRIT 23.1 % (35.4-49); HEMOGLOBIN 7.7 GM/dL (11.7-16.9); LYMPH % 33.3 % (8-40); MCH 29.1 pg (25.7-33.7); MCHC 33.5 g/dl (32.0-35.9); MEAN CELL VOLUME 86.9 fl (80-96); MEAN PLT VOLUME 8.3 fl (7.5-11.1); MONO % 15.1 % (3.8-10.2); NEUT % 42.4 % (42.8-82.8); PLATELET COUNT 169 10^3/uL (134-434); RBC 2.66 M/mm3 (4.00-5.60); RDW 15.1 % (11.9-15.9); WHITE BLOOD COUNT 3.8 K/mm3 (4.0-10.0)
[2021-08-28 07:42] LABS: CALCIUM 7.9 mg/dL (8.5-10.1)
[2021-08-28 07:45] LABS: PHOSPHOROUS 4.4 mg/dL (2.5-4.9)
[2021-08-28 07:46] LABS: TOT PROT 6.3 g/dl (6.4-8.2)
[2021-08-28 07:47] LABS: BILIRUBIN,TOTAL 0.4 mg/dL (0.2-1)
[2021-08-28 07:48] LABS: N-TERMINAL BNP 6887.4 pg/ml (5-450)
[2021-08-28] MEDS ORDERED: PIPERACILLIN/TAZOB 2.25 GM 2.25 GM in DEXTROSE 5%-WATER - 50 ML IVPB SCH (09:00)
[2021-08-28] MEDS: levETIRAcetam 500 MG TABLET (FP) PO SCH ×2 (09:42→21:55)
[2021-08-28] MEDS: hydrALAZINE HCL 25 MG TABLET (FP) PO SCH ×3 (09:42→21:55)
[2021-08-28] MEDS: METOPROLOL TARTRATE 50 MG TABLET (FP) PO SCH ×2 (09:43→22:01)
[2021-08-28] MEDS: FUROSEMIDE 40 MG/4 ML INJECTABLE VIAL IVPUSH SCH (09:43)
[2021-08-28] MEDS ORDERED: levETIRAcetam 500 MG TABLET (FP) PO SCH (10:00)
[2021-08-28] MEDS: TERAZOSIN HCL 5 MG CAPSULE PO SCH (10:30)
[2021-08-28] MEDS: ACETAMINOPHEN 1000 MG/100 ML BAG IVPB PRN (23:49)
[2021-08-29] MEDS: VANCOMYCIN 1 GM in D5W (PRE-DOCKED) 1,000 MG/250 ML IVPB SCH (01:14)
[2021-08-29] MEDS ORDERED: DEXTROSE 5%-WATER - 50 ML IVPB ONE ×3 (02:48→17:19)
[2021-08-29] MEDS ORDERED: PIPERACILLIN/TAZOBACTAM 2.25 GM VIAL IVPB ONE ×3 (02:48→17:19)
[2021-08-29] MEDS: PIPERACILLIN/TAZOB 2.25 GM 2.25 GM in DEXTROSE 5%-WATER - 50 ML IVPB SCH ×3 (02:50→17:36)
[2021-08-29] MEDS: hydrALAZINE HCL 25 MG TABLET (FP) PO SCH (05:23)
[2021-08-29] MEDS: HEPARIN NA (PORCINE) 5,000 UNITS/ML 1ML VIAL SQ SCH ×2 (05:23→13:14)
[2021-08-29 07:52] LABS: BASO % 0.7 % (0-2.0); EOS % 9.1 % (0-4.5); HEMATOCRIT 24.5 % (35.4-49); HEMOGLOBIN 8.3 GM/dL (11.7-16.9); LYMPH % 40.9 % (8-40); MCH 29.4 pg (25.7-33.7); MCHC 33.9 g/dl (32.0-35.9); MEAN CELL VOLUME 86.8 fl (80-96); MEAN PLT VOLUME 8.2 fl (7.5-11.1); MONO % 13.5 % (3.8-10.2); NEUT % 35.8 % (42.8-82.8); PLATELET COUNT 177 10^3/uL (134-434); RBC 2.82 M/mm3 (4.00-5.60); RDW 15.3 % (11.9-15.9); WHITE BLOOD COUNT 3.8 K/mm3 (4.0-10.0)
[2021-08-29 08:29] LABS: ALBUMIN 3.1 g/dl (3.4-5.0); BLOOD UREA NITROGEN 46.2 mg/dL (7-18)
[2021-08-29 08:32] LABS: PHOSPHOROUS 4.4 mg/dL (2.5-4.9)
[2021-08-29 08:33] LABS: TOT PROT 6.6 g/dl (6.4-8.2)
[2021-08-29 08:34] LABS: BILIRUBIN,TOTAL 0.4 mg/dL (0.2-1)
[2021-08-29] MEDS: METOPROLOL TARTRATE 50 MG TABLET (FP) PO SCH ×2 (09:06→21:20)
[2021-08-29] MEDS: TERAZOSIN HCL 5 MG CAPSULE PO SCH (09:07)
[2021-08-29] MEDS: amLODIPine BESYLATE 10 MG TABLET (FP) PO SCH (09:07)
[2021-08-29] MEDS: FUROSEMIDE 40 MG/4 ML INJECTABLE VIAL IVPUSH SCH (09:07)
[2021-08-29] MEDS: levETIRAcetam 500 MG TABLET (FP) PO SCH ×2 (09:07→21:21)
[2021-08-29] MEDS ORDERED: hydrALAZINE HCL 25 MG TABLET (FP) PO SCH (10:50)
[2021-08-29] MEDS: ACETAMINOPHEN 1000 MG/100 ML BAG IVPB PRN ×2 (10:52→21:26)
[2021-08-29] MEDS ORDERED: CYCLOBENZAPRINE HCL 10 MG TABLET (FP) PO ONE (12:30)
[2021-08-29] MEDS ORDERED: hydrALAZINE HCL 50 MG TABLET (FP) ONE ×2 (13:07→21:00)
[2021-08-29] MEDS ORDERED: hydrALAZINE HCL 25 MG TABLET (FP) ONE ×2 (13:07→20:59)
[2021-08-29] MEDS: HYDRALAZINE HCL PO SCH ×2 (13:14→21:21)
[2021-08-29] MEDS: ISOSORBIDE MONONITRATE 30 MG TAB.SR.24H (FP) PO SCH (13:15)
[2021-08-30] MEDS ORDERED: PIPERACILLIN/TAZOBACTAM 2.25 GM VIAL IVPB ONE ×3 (00:44→16:48)
[2021-08-30] MEDS ORDERED: DEXTROSE 5%-WATER - 50 ML IVPB ONE ×3 (00:44→16:48)
[2021-08-30] MEDS: PIPERACILLIN/TAZOB 2.25 GM 2.25 GM in DEXTROSE 5%-WATER - 50 ML IVPB SCH ×3 (01:28→17:00)
[2021-08-30] MEDS: VANCOMYCIN 1 GM in D5W (PRE-DOCKED) 1,000 MG/250 ML IVPB SCH (02:11)
[2021-08-30] MEDS ORDERED: hydrALAZINE HCL 25 MG TABLET (FP) ONE ×3 (05:34→21:52)
[2021-08-30] MEDS ORDERED: hydrALAZINE HCL 50 MG TABLET (FP) ONE ×3 (05:34→21:52)
[2021-08-30] MEDS: HYDRALAZINE HCL PO SCH ×3 (05:57→22:07)
[2021-08-30] MEDS: ISOSORBIDE MONONITRATE 30 MG TAB.SR.24H (FP) PO SCH (09:27)
[2021-08-30] MEDS: TERAZOSIN HCL 5 MG CAPSULE PO SCH (09:27)
[2021-08-30] MEDS: FUROSEMIDE 20 MG TABLET (FP) PO SCH (09:27)
[2021-08-30] MEDS: levETIRAcetam 500 MG TABLET (FP) PO SCH ×2 (09:27→22:07)
[2021-08-30] MEDS: METOPROLOL TARTRATE 50 MG TABLET (FP) PO SCH ×2 (09:28→22:07)
[2021-08-30] MEDS: amLODIPine BESYLATE 10 MG TABLET (FP) PO SCH (09:28)
[2021-08-30 11:03] LABS: BASO % 0.8 % (0-2.0); HEMATOCRIT 26.2 % (35.4-49); HEMOGLOBIN 8.7 GM/dL (11.7-16.9); MCH 29.1 pg (25.7-33.7); MCHC 33.4 g/dl (32.0-35.9); MEAN CELL VOLUME 86.9 fl (80-96); MEAN PLT VOLUME 8.3 fl (7.5-11.1); MONO % 11.6 % (3.8-10.2); NEUT % 44.6 % (42.8-82.8); PLATELET COUNT 186 10^3/uL (134-434); RBC 3.01 M/mm3 (4.00-5.60); RDW 15.3 % (11.9-15.9); WHITE BLOOD COUNT 3.7 K/mm3 (4.0-10.0)
[2021-08-30 11:23] LABS: ALBUMIN 3.2 g/dl (3.4-5.0); BLOOD UREA NITROGEN 50.2 mg/dL (7-18)
[2021-08-30 11:26] LABS: CREATININE 3.2 mg/dL (0.55-1.3); PHOSPHOROUS 4.9 mg/dL (2.5-4.9)
[2021-08-30 11:27] LABS: TOT PROT 6.9 g/dl (6.4-8.2)
[2021-08-30 11:28] LABS: BILIRUBIN,TOTAL 0.6 mg/dL (0.2-1)
[2021-08-30 11:42] LABS: N-TERMINAL BNP 4169.1 pg/ml (5-450)
[2021-08-30 17:07] LABS: BF WBC & OTHER NUCLEATED CELLS 619 /mm3
[2021-08-30 17:23] LABS: BODY FLUID MESOTHELIAL 3 %
[2021-08-30 17:33] LABS: BODY FLUID MONOCYTE 37 %
[2021-08-30 17:36] LABS: BODY FLUID MACROPHAGES 10 %
[2021-08-30] MEDS: ACETAMINOPHEN 325 MG TABLET (FP) PO PRN (22:08)
[2021-08-31] MEDS ORDERED: PIPERACILLIN/TAZOBACTAM 2.25 GM VIAL IVPB ONE ×3 (01:08→17:19)
[2021-08-31] MEDS ORDERED: DEXTROSE 5%-WATER - 50 ML IVPB ONE ×3 (01:08→17:19)
[2021-08-31] MEDS: VANCOMYCIN 1 GM in D5W (PRE-DOCKED) 1,000 MG/250 ML IVPB SCH (01:57)
[2021-08-31] MEDS: PIPERACILLIN/TAZOB 2.25 GM 2.25 GM in DEXTROSE 5%-WATER - 50 ML IVPB SCH ×3 (02:10→18:04)
[2021-08-31] MEDS ORDERED: hydrALAZINE HCL 50 MG TABLET (FP) ONE ×3 (05:45→21:18)
[2021-08-31] MEDS ORDERED: hydrALAZINE HCL 25 MG TABLET (FP) ONE ×3 (05:45→21:17)
[2021-08-31] MEDS: HYDRALAZINE HCL PO SCH ×3 (05:58→21:53)
[2021-08-31 08:48] LABS: BASO % 0.8 % (0-2.0); EOS % 7.8 % (0-4.5); HEMATOCRIT 24.9 % (35.4-49); HEMOGLOBIN 8.4 GM/dL (11.7-16.9); LYMPH % 34.5 % (8-40); MCH 29.2 pg (25.7-33.7); MCHC 33.6 g/dl (32.0-35.9); MEAN CELL VOLUME 86.9 fl (80-96); MEAN PLT VOLUME 8.2 fl (7.5-11.1); MONO % 13.4 % (3.8-10.2); NEUT % 43.5 % (42.8-82.8); PLATELET COUNT 167 10^3/uL (134-434); RBC 2.87 M/mm3 (4.00-5.60); RDW 15.2 % (11.9-15.9); WHITE BLOOD COUNT 3.6 K/mm3 (4.0-10.0)
[2021-08-31 09:09] LABS: BLOOD UREA NITROGEN 53.2 mg/dL (7-18); CALCIUM 8.2 mg/dL (8.5-10.1)
[2021-08-31 09:10] LABS: ALBUMIN 3.2 g/dl (3.4-5.0); MAGNESIUM 2.2 mg/dL (1.8-2.4)
[2021-08-31 09:11] LABS: CREATININE 3.5 mg/dL (0.55-1.3); PHOSPHOROUS 4.8 mg/dL (2.5-4.9)
[2021-08-31 09:12] LABS: BILIRUBIN,TOTAL 0.3 mg/dL (0.2-1)
[2021-08-31] MEDS: levETIRAcetam 500 MG TABLET (FP) PO SCH ×2 (09:37→21:53)
[2021-08-31] MEDS: METOPROLOL TARTRATE 50 MG TABLET (FP) PO SCH ×2 (09:38→21:53)
[2021-08-31] MEDS: amLODIPine BESYLATE 10 MG TABLET (FP) PO SCH (09:39)
[2021-08-31] MEDS: FUROSEMIDE 20 MG TABLET (FP) PO SCH (09:39)
[2021-08-31] MEDS: TERAZOSIN HCL 5 MG CAPSULE PO SCH (09:39)
[2021-08-31] MEDS: ISOSORBIDE MONONITRATE 30 MG TAB.SR.24H (FP) PO SCH (09:39)
[2021-08-31] MEDS: HEPARIN NA (PORCINE) 5,000 UNITS/ML 1ML VIAL SQ SCH ×2 (14:06→21:53)
[2021-08-31] MEDS: ACETAMINOPHEN 325 MG TABLET (FP) PO PRN (21:53)
[2021-09-01] MEDS ORDERED: PIPERACILLIN/TAZOBACTAM 2.25 GM VIAL IVPB ONE ×3 (00:39→16:53)
[2021-09-01] MEDS ORDERED: DEXTROSE 5%-WATER - 50 ML IVPB ONE ×3 (00:39→16:53)
[2021-09-01] MEDS: PIPERACILLIN/TAZOB 2.25 GM 2.25 GM in DEXTROSE 5%-WATER - 50 ML IVPB SCH ×3 (00:59→17:21)
[2021-09-01] MEDS: VANCOMYCIN 1 GM in D5W (PRE-DOCKED) 1,000 MG/250 ML IVPB SCH (02:10)
[2021-09-01] MEDS ORDERED: hydrALAZINE HCL 25 MG TABLET (FP) ONE ×3 (05:06→20:57)
[2021-09-01] MEDS ORDERED: hydrALAZINE HCL 50 MG TABLET (FP) ONE ×3 (05:06→20:57)
[2021-09-01] MEDS: HEPARIN NA (PORCINE) 5,000 UNITS/ML 1ML VIAL SQ SCH ×3 (05:18→21:32)
[2021-09-01] MEDS: HYDRALAZINE HCL PO SCH ×3 (05:18→21:32)
[2021-09-01] MEDS: ISOSORBIDE MONONITRATE 30 MG TAB.SR.24H (FP) PO SCH (09:43)
[2021-09-01] MEDS: levETIRAcetam 500 MG TABLET (FP) PO SCH ×2 (09:43→21:32)
[2021-09-01] MEDS: TERAZOSIN HCL 5 MG CAPSULE PO SCH (09:44)
[2021-09-01] MEDS: ACETAMINOPHEN 325 MG TABLET (FP) PO PRN ×2 (09:44→21:32)
[2021-09-01] MEDS: amLODIPine BESYLATE 10 MG TABLET (FP) PO SCH (09:44)
[2021-09-01] MEDS: METOPROLOL TARTRATE 50 MG TABLET (FP) PO SCH ×2 (09:44→21:32)
[2021-09-01 13:18] LABS: CALCIUM 8.1 mg/dL (8.5-10.1)
[2021-09-01 13:19] LABS: MAGNESIUM 2.2 mg/dL (1.8-2.4)
[2021-09-01 13:21] LABS: CREATININE 3.4 mg/dL (0.55-1.3); PHOSPHOROUS 5.1 mg/dL (2.5-4.9)
[2021-09-01 13:23] LABS: BILIRUBIN,TOTAL 0.3 mg/dL (0.2-1); TOT PROT 6.6 g/dl (6.4-8.2)
[2021-09-01] MEDS ORDERED: SODIUM CHLORIDE 1,000 ML IV SCH (14:15)
[2021-09-01 15:00] LABS: BASO % 0.9 % (0-2.0); HEMOGLOBIN 7.8 GM/dL (11.7-16.9); LYMPH % 28.2 % (8-40); MCH 29.4 pg (25.7-33.7); MCHC 33.7 g/dl (32.0-35.9); MEAN CELL VOLUME 87.2 fl (80-96); MEAN PLT VOLUME 7.9 fl (7.5-11.1); MONO % 11.5 % (3.8-10.2); NEUT % 53.4 % (42.8-82.8); PLATELET COUNT 167 10^3/uL (134-434); RBC 2.64 M/mm3 (4.00-5.60); RDW 15.5 % (11.9-15.9); WHITE BLOOD COUNT 3.2 K/mm3 (4.0-10.0)
[2021-09-02] MEDS ORDERED: PIPERACILLIN/TAZOBACTAM 2.25 GM VIAL IVPB ONE ×2 (00:40→09:04)
[2021-09-02] MEDS ORDERED: DEXTROSE 5%-WATER - 50 ML IVPB ONE ×2 (00:40→09:04)
[2021-09-02] MEDS: PIPERACILLIN/TAZOB 2.25 GM 2.25 GM in DEXTROSE 5%-WATER - 50 ML IVPB SCH ×2 (01:02→09:18)
[2021-09-02] MEDS ORDERED: hydrALAZINE HCL 50 MG TABLET (FP) ONE ×3 (06:00→21:20)
[2021-09-02] MEDS ORDERED: hydrALAZINE HCL 25 MG TABLET (FP) ONE ×3 (06:00→21:19)
[2021-09-02] MEDS ORDERED: ACETAMINOPHEN 325 MG TABLET (FP) PO ONE ×2 (06:17→11:49)
[2021-09-02] MEDS: HYDRALAZINE HCL PO SCH ×3 (06:30→21:53)
[2021-09-02] MEDS: HEPARIN NA (PORCINE) 5,000 UNITS/ML 1ML VIAL SQ SCH ×3 (06:30→21:53)
[2021-09-02 08:51] LABS: BASO % 1.3 % (0-2.0); EOS % 5.7 % (0-4.5); HEMATOCRIT 23.4 % (35.4-49); HEMOGLOBIN 7.9 GM/dL (11.7-16.9); LYMPH % 38.1 % (8-40); MCH 29.5 pg (25.7-33.7); MCHC 33.6 g/dl (32.0-35.9); MEAN CELL VOLUME 87.9 fl (80-96); MEAN PLT VOLUME 8.2 fl (7.5-11.1); MONO % 11.6 % (3.8-10.2); NEUT % 43.3 % (42.8-82.8); PLATELET COUNT 167 10^3/uL (134-434); RBC 2.66 M/mm3 (4.00-5.60); RDW 14.7 % (11.9-15.9); WHITE BLOOD COUNT 3.3 K/mm3 (4.0-10.0)
[2021-09-02] MEDS: amLODIPine BESYLATE 10 MG TABLET (FP) PO SCH (09:18)
[2021-09-02] MEDS: METOPROLOL TARTRATE 50 MG TABLET (FP) PO SCH ×2 (09:18→21:53)
[2021-09-02] MEDS: ISOSORBIDE MONONITRATE 30 MG TAB.SR.24H (FP) PO SCH (09:18)
[2021-09-02] MEDS: TERAZOSIN HCL 5 MG CAPSULE PO SCH (09:18)
[2021-09-02 09:26] LABS: BILIRUBIN,TOTAL 0.2 mg/dL (0.2-1); BLOOD UREA NITROGEN 56.7 mg/dL (7-18); MAGNESIUM 2.2 mg/dL (1.8-2.4); TOT PROT 6.7 g/dl (6.4-8.2)
[2021-09-02 09:29] LABS: CREATININE 3.3 mg/dL (0.55-1.3)
[2021-09-02] MEDS ORDERED: levETIRAcetam 500 MG/5 ML ORAL SOLUTION (UNIT-DOSE CUPS) PO SCH (10:00)
[2021-09-02] MEDS ORDERED: ACETAMINOPHEN 1000 MG/100 ML BAG IVPB PRN (11:42)
[2021-09-02] MEDS ORDERED: DEXTROSE 5%-WATER 100 ML IVPB ONE (12:08)
[2021-09-02] MEDS: CEFTRIAXONE 2 GM in DEXTROSE 5%-WATER 2 GM/100 ML BAG IVPB SCH (12:57)
[2021-09-02 13:07] LABS: BODY FLUID ALBUMIN 1.9 g/dL (Not Estab.)
[2021-09-02] MEDS: levETIRAcetam 500 MG/5 ML ORAL SOLUTION (UNIT-DOSE CUPS) PO SCH (21:53)
[2021-09-03] MEDS ORDERED: hydrALAZINE HCL 25 MG TABLET (FP) ONE ×3 (05:35→20:59)
[2021-09-03] MEDS ORDERED: hydrALAZINE HCL 50 MG TABLET (FP) ONE ×3 (05:35→20:59)
[2021-09-03] MEDS: HYDRALAZINE HCL PO SCH ×3 (05:59→21:06)
[2021-09-03] MEDS: HEPARIN NA (PORCINE) 5,000 UNITS/ML 1ML VIAL SQ SCH ×3 (06:00→21:08)
[2021-09-03 09:20] LABS: BASO % 0.9 % (0-2.0); EOS % 5.7 % (0-4.5); HEMATOCRIT 24.3 % (35.4-49); HEMOGLOBIN 8.1 GM/dL (11.7-16.9); LYMPH % 39.1 % (8-40); MCH 29.1 pg (25.7-33.7); MCHC 33.1 g/dl (32.0-35.9); MEAN CELL VOLUME 87.8 fl (80-96); MEAN PLT VOLUME 8.2 fl (7.5-11.1); NEUT % 44.3 % (42.8-82.8); PLATELET COUNT 169 10^3/uL (134-434); RBC 2.77 M/mm3 (4.00-5.60); RDW 15.7 % (11.9-15.9); WHITE BLOOD COUNT 3.6 K/mm3 (4.0-10.0)
[2021-09-03 10:06] LABS: ALBUMIN 3.1 g/dl (3.4-5.0); CALCIUM 8.3 mg/dL (8.5-10.1)
[2021-09-03] MEDS ORDERED: DEXTROSE 5%-WATER 100 ML IVPB ONE (10:07)
[2021-09-03 10:08] LABS: BLOOD UREA NITROGEN 59.4 mg/dL (7-18); MAGNESIUM 2.3 mg/dL (1.8-2.4)
[2021-09-03] MEDS: ISOSORBIDE MONONITRATE 30 MG TAB.SR.24H (FP) PO SCH (10:10)
[2021-09-03] MEDS: METOPROLOL TARTRATE 50 MG TABLET (FP) PO SCH ×2 (10:10→21:07)
[2021-09-03] MEDS: FUROSEMIDE 20 MG TABLET (FP) PO SCH (10:10)
[2021-09-03 10:11] LABS: BILIRUBIN,TOTAL 0.2 mg/dL (0.2-1); PHOSPHOROUS 5.4 mg/dL (2.5-4.9)
[2021-09-03] MEDS: amLODIPine BESYLATE 10 MG TABLET (FP) PO SCH (10:11)
[2021-09-03] MEDS: VITAMIN B COMP W-C 1 EA TABLET (NEPHRO-VITE) PO SCH (10:11)
[2021-09-03] MEDS: levETIRAcetam 500 MG/5 ML ORAL SOLUTION (UNIT-DOSE CUPS) PO SCH ×2 (10:11→21:08)
[2021-09-03] MEDS: TERAZOSIN HCL 5 MG CAPSULE PO SCH (10:12)
[2021-09-03] MEDS: CEFTRIAXONE 2 GM in DEXTROSE 5%-WATER 2 GM/100 ML BAG IVPB SCH (10:12)
[2021-09-03 10:15] LABS: TOT PROT 6.7 g/dl (6.4-8.2)
[2021-09-03] MEDS ORDERED: LACTATED RINGERS SOLUTION 1,000 ML/1,000 ML INFUS.BAG IV SCH (13:15)
[2021-09-03] MEDS ORDERED: ACETAMINOPHEN 325 MG TABLET (FP) PO PRN (20:51)
[2021-09-04] MEDS ORDERED: hydrALAZINE HCL 50 MG TABLET (FP) ONE ×3 (05:51→21:36)
[2021-09-04] MEDS ORDERED: hydrALAZINE HCL 25 MG TABLET (FP) ONE ×3 (05:51→21:36)
[2021-09-04] MEDS: HYDRALAZINE HCL PO SCH ×3 (05:52→22:12)
[2021-09-04] MEDS: HEPARIN NA (PORCINE) 5,000 UNITS/ML 1ML VIAL SQ SCH ×3 (05:55→22:11)
[2021-09-04] MEDS ORDERED: DEXTROSE 5%-WATER 100 ML IVPB ONE (10:21)
[2021-09-04] MEDS: ISOSORBIDE MONONITRATE 30 MG TAB.SR.24H (FP) PO SCH (10:25)
[2021-09-04] MEDS: VITAMIN B COMP W-C 1 EA TABLET (NEPHRO-VITE) PO SCH (10:25)
[2021-09-04] MEDS: CEFTRIAXONE 2 GM in DEXTROSE 5%-WATER 2 GM/100 ML BAG IVPB SCH (10:25)
[2021-09-04] MEDS: amLODIPine BESYLATE 10 MG TABLET (FP) PO SCH (10:25)
[2021-09-04] MEDS: levETIRAcetam 500 MG/5 ML ORAL SOLUTION (UNIT-DOSE CUPS) PO SCH ×2 (10:25→22:08)
[2021-09-04] MEDS: TERAZOSIN HCL 5 MG CAPSULE PO SCH (10:25)
[2021-09-04 16:15] LABS: BASO % 1.1 % (0-2.0); HEMATOCRIT 21.7 % (35.4-49); HEMOGLOBIN 7.2 GM/dL (11.7-16.9); LYMPH % 36.7 % (8-40); MCH 28.9 pg (25.7-33.7); MCHC 33.2 g/dl (32.0-35.9); MEAN CELL VOLUME 87.2 fl (80-96); MEAN PLT VOLUME 8.2 fl (7.5-11.1); MONO % 12.4 % (3.8-10.2); NEUT % 44.8 % (42.8-82.8); PLATELET COUNT 154 10^3/uL (134-434); RBC 2.49 M/mm3 (4.00-5.60); RDW 15.3 % (11.9-15.9); WHITE BLOOD COUNT 2.8 K/mm3 (4.0-10.0)
[2021-09-04 16:23] LABS: ADD RBC MORPHOLOGY YES
[2021-09-04 16:41] LABS: CALCIUM 8.3 mg/dL (8.5-10.1)
[2021-09-04 16:42] LABS: ALBUMIN 2.8 g/dl (3.4-5.0); BLOOD UREA NITROGEN 56.2 mg/dL (7-18); MAGNESIUM 2.2 mg/dL (1.8-2.4)
[2021-09-04 16:45] LABS: CREATININE 2.8 mg/dL (0.55-1.3); PHOSPHOROUS 4.5 mg/dL (2.5-4.9)
[2021-09-04 16:46] LABS: BILIRUBIN,TOTAL 0.1 mg/dL (0.2-1); TOT PROT 6.2 g/dl (6.4-8.2)
[2021-09-04] MEDS: metroNIDAZOLE 500 MG TABLET PO SCH ×2 (17:34→22:11)
[2021-09-04 18:37] LABS: PLATELET ESTIMATE ADEQUATE
[2021-09-04 19:05] LABS: ANISOCYTOSIS 1+
[2021-09-04 19:06] LABS: OVALOCYTE 1+
[2021-09-05] MEDS ORDERED: hydrALAZINE HCL 50 MG TABLET (FP) ONE ×3 (05:20→21:56)
[2021-09-05] MEDS ORDERED: hydrALAZINE HCL 25 MG TABLET (FP) ONE ×3 (05:20→21:57)
[2021-09-05] MEDS: HEPARIN NA (PORCINE) 5,000 UNITS/ML 1ML VIAL SQ SCH ×3 (05:41→22:13)
[2021-09-05] MEDS: HYDRALAZINE HCL PO SCH ×3 (05:41→23:06)
[2021-09-05] MEDS: metroNIDAZOLE 250 MG TABLET PO SCH ×3 (05:41→22:13)
[2021-09-05] MEDS ORDERED: levETIRAcetam 500 MG/5 ML ORAL SOLUTION (UNIT-DOSE CUPS) PO SCH (10:00)
[2021-09-05] MEDS ORDERED: DEXTROSE 5%-WATER 100 ML IVPB ONE (10:38)
[2021-09-05 10:45] LABS: BASO % 1.2 % (0-2.0); EOS % 4.9 % (0-4.5); HEMATOCRIT 24.1 % (35.4-49); HEMOGLOBIN 8.1 GM/dL (11.7-16.9); LYMPH % 35.1 % (8-40); MCH 29.5 pg (25.7-33.7); MCHC 33.6 g/dl (32.0-35.9); MEAN CELL VOLUME 87.7 fl (80-96); MEAN PLT VOLUME 8.5 fl (7.5-11.1); MONO % 8.9 % (3.8-10.2); NEUT % 49.9 % (42.8-82.8); PLATELET COUNT 170 10^3/uL (134-434); RBC 2.75 M/mm3 (4.00-5.60); RDW 15.5 % (11.9-15.9); WHITE BLOOD COUNT 3.8 K/mm3 (4.0-10.0)
[2021-09-05 11:13] LABS: ALBUMIN 3.1 g/dl (3.4-5.0); BLOOD UREA NITROGEN 56.6 mg/dL (7-18); CALCIUM 8.6 mg/dL (8.5-10.1); MAGNESIUM 2.3 mg/dL (1.8-2.4)
[2021-09-05 11:15] LABS: CREATININE 2.8 mg/dL (0.55-1.3); PHOSPHOROUS 3.9 mg/dL (2.5-4.9)
[2021-09-05 11:16] LABS: BILIRUBIN,TOTAL 0.3 mg/dL (0.2-1); TOT PROT 6.9 g/dl (6.4-8.2)
[2021-09-05] MEDS: CEFTRIAXONE 2 GM in DEXTROSE 5%-WATER 2 GM/100 ML BAG IVPB SCH (12:02)
[2021-09-05] MEDS: VITAMIN B COMP W-C 1 EA TABLET (NEPHRO-VITE) PO SCH (12:02)
[2021-09-05] MEDS: amLODIPine BESYLATE 10 MG TABLET (FP) PO SCH (12:02)
[2021-09-05] MEDS: TERAZOSIN HCL 5 MG CAPSULE PO SCH (12:09)
[2021-09-05] MEDS: levETIRAcetam 500 MG/5 ML ORAL SOLUTION (UNIT-DOSE CUPS) PO SCH ×2 (12:09→22:13)
[2021-09-05] MEDS: ISOSORBIDE MONONITRATE 30 MG TAB.SR.24H (FP) PO SCH (12:09)
[2021-09-05] MEDS: ACETAMINOPHEN 325 MG TABLET (FP) PO PRN (15:32)
[2021-09-06] MEDS ORDERED: hydrALAZINE HCL 50 MG TABLET (FP) ONE ×3 (05:43→20:41)
[2021-09-06] MEDS ORDERED: hydrALAZINE HCL 25 MG TABLET (FP) ONE ×3 (05:43→20:42)
[2021-09-06] MEDS: metroNIDAZOLE 250 MG TABLET PO SCH ×3 (06:40→21:10)
[2021-09-06] MEDS: HYDRALAZINE HCL PO SCH ×3 (06:41→21:11)
[2021-09-06] MEDS: HEPARIN NA (PORCINE) 5,000 UNITS/ML 1ML VIAL SQ SCH ×3 (06:41→21:10)
[2021-09-06] MEDS ORDERED: DEXTROSE 5%-WATER 100 ML IVPB ONE (11:04)
[2021-09-06] MEDS: CEFTRIAXONE 2 GM in DEXTROSE 5%-WATER 2 GM/100 ML BAG IVPB SCH (11:12)
[2021-09-06] MEDS: VITAMIN B COMP W-C 1 EA TABLET (NEPHRO-VITE) PO SCH (11:13)
[2021-09-06] MEDS: amLODIPine BESYLATE 10 MG TABLET (FP) PO SCH (11:13)
[2021-09-06] MEDS: TERAZOSIN HCL 5 MG CAPSULE PO SCH (11:13)
[2021-09-06] MEDS: ISOSORBIDE MONONITRATE 30 MG TAB.SR.24H (FP) PO SCH (11:14)
[2021-09-06] MEDS: levETIRAcetam 500 MG/5 ML ORAL SOLUTION (UNIT-DOSE CUPS) PO SCH ×2 (11:14→21:11)
[2021-09-06 11:48] LABS: BASO % 0.9 % (0-2.0); EOS % 7.6 % (0-4.5); HEMATOCRIT 23.1 % (35.4-49); HEMOGLOBIN 7.6 GM/dL (11.7-16.9); MCHC 33.2 g/dl (32.0-35.9); MEAN CELL VOLUME 87.5 fl (80-96); MEAN PLT VOLUME 8.4 fl (7.5-11.1); MONO % 9.8 % (3.8-10.2); NEUT % 48.7 % (42.8-82.8); PLATELET COUNT 162 10^3/uL (134-434); RBC 2.64 M/mm3 (4.00-5.60); RDW 15.2 % (11.9-15.9); WHITE BLOOD COUNT 3.5 K/mm3 (4.0-10.0)
[2021-09-06 12:23] LABS: URIC ACID 7.4 mg/dL (2.6-7.2)
[2021-09-06 12:25] LABS: CALCIUM 8.5 mg/dL (8.5-10.1)
[2021-09-06 12:26] LABS: BLOOD UREA NITROGEN 62.1 mg/dL (7-18); MAGNESIUM 2.2 mg/dL (1.8-2.4); PHOSPHOROUS 3.9 mg/dL (2.5-4.9)
[2021-09-06 12:27] LABS: BILIRUBIN,TOTAL 0.2 mg/dL (0.2-1)
[2021-09-06 12:29] LABS: CREATININE 2.8 mg/dL (0.55-1.3)
[2021-09-06 12:32] LABS: TOT PROT 6.6 g/dl (6.4-8.2)
[2021-09-06 12:40] LABS: ERYTHROCYTE SEDIMENTATION RATE 44 mm/hr (0-20)
[2021-09-06 13:05] LABS: HIV INTERPRETATION NEGATIVE (NEGATIVE)
[2021-09-06 16:21] VITALS: BMI 18.3
[2021-09-07] MEDS: ACETAMINOPHEN 325 MG TABLET (FP) PO PRN ×2 (02:03→18:52)
[2021-09-07] MEDS ORDERED: hydrALAZINE HCL 25 MG TABLET (FP) ONE ×3 (04:59→21:54)
[2021-09-07] MEDS ORDERED: hydrALAZINE HCL 50 MG TABLET (FP) ONE ×3 (04:59→21:54)
[2021-09-07] MEDS: HEPARIN NA (PORCINE) 5,000 UNITS/ML 1ML VIAL SQ SCH ×3 (05:20→21:56)
[2021-09-07] MEDS: metroNIDAZOLE 250 MG TABLET PO SCH ×2 (05:22→15:49)
[2021-09-07] MEDS: HYDRALAZINE HCL PO SCH ×3 (05:22→21:55)
[2021-09-07] MEDS ORDERED: DEXTROSE 5%-WATER 100 ML IVPB ONE (08:41)
[2021-09-07 09:00] LABS: BASO % 0.9 % (0-2.0); EOS % 6.9 % (0-4.5); HEMATOCRIT 26.8 % (35.4-49); LYMPH % 33.1 % (8-40); MCH 29.6 pg (25.7-33.7); MCHC 33.7 g/dl (32.0-35.9); MEAN PLT VOLUME 8.5 fl (7.5-11.1); MONO % 9.1 % (3.8-10.2); PLATELET COUNT 180 10^3/uL (134-434); RBC 3.05 M/mm3 (4.00-5.60); RDW 15.2 % (11.9-15.9); WHITE BLOOD COUNT 4.2 K/mm3 (4.0-10.0)
[2021-09-07] MEDS: levETIRAcetam 500 MG/5 ML ORAL SOLUTION (UNIT-DOSE CUPS) PO SCH ×2 (09:09→21:56)
[2021-09-07] MEDS: VITAMIN B COMP W-C 1 EA TABLET (NEPHRO-VITE) PO SCH (09:09)
[2021-09-07] MEDS: CEFTRIAXONE 2 GM in DEXTROSE 5%-WATER 2 GM/100 ML BAG IVPB SCH (09:09)
[2021-09-07] MEDS: amLODIPine BESYLATE 10 MG TABLET (FP) PO SCH (09:09)
[2021-09-07] MEDS: ISOSORBIDE MONONITRATE 30 MG TAB.SR.24H (FP) PO SCH (09:09)
[2021-09-07] MEDS: TERAZOSIN HCL 5 MG CAPSULE PO SCH (09:10)
[2021-09-07 09:22] LABS: CALCIUM 8.9 mg/dL (8.5-10.1)
[2021-09-07 09:23] LABS: ALBUMIN 3.6 g/dl (3.4-5.0); BLOOD UREA NITROGEN 66.8 mg/dL (7-18); MAGNESIUM 2.4 mg/dL (1.8-2.4)
[2021-09-07 09:26] LABS: CREATININE 2.9 mg/dL (0.55-1.3)
[2021-09-07 09:28] LABS: BILIRUBIN,TOTAL 0.3 mg/dL (0.2-1); TOT PROT 7.8 g/dl (6.4-8.2)
[2021-09-07] MEDS: ATORVASTATIN CA 40 MG TABLET (FP) PO SCH (21:56)
[2021-09-08] MEDS ORDERED: hydrALAZINE HCL 50 MG TABLET (FP) ONE ×3 (05:59→20:46)
[2021-09-08] MEDS ORDERED: hydrALAZINE HCL 25 MG TABLET (FP) ONE ×3 (05:59→20:46)
[2021-09-08] MEDS: HEPARIN NA (PORCINE) 5,000 UNITS/ML 1ML VIAL SQ SCH ×3 (06:26→21:36)
[2021-09-08] MEDS: HYDRALAZINE HCL PO SCH ×3 (06:26→21:36)
[2021-09-08] MEDS: ISOSORBIDE MONONITRATE 30 MG TAB.SR.24H (FP) PO SCH (09:52)
[2021-09-08] MEDS: VITAMIN B COMP W-C 1 EA TABLET (NEPHRO-VITE) PO SCH (09:52)
[2021-09-08] MEDS: amLODIPine BESYLATE 10 MG TABLET (FP) PO SCH (09:53)
[2021-09-08] MEDS: levETIRAcetam 500 MG/5 ML ORAL SOLUTION (UNIT-DOSE CUPS) PO SCH ×2 (09:53→21:36)
[2021-09-08] MEDS: TERAZOSIN HCL 5 MG CAPSULE PO SCH (09:53)
[2021-09-08 11:50] LABS: EOS % 5.4 % (0-4.5); HEMOGLOBIN 7.6 GM/dL (11.7-16.9); LYMPH % 31.5 % (8-40); MCH 29.1 pg (25.7-33.7); MEAN CELL VOLUME 88.3 fl (80-96); MEAN PLT VOLUME 8.5 fl (7.5-11.1); MONO % 12.6 % (3.8-10.2); NEUT % 49.5 % (42.8-82.8); PLATELET COUNT 177 10^3/uL (134-434); RBC 2.61 M/mm3 (4.00-5.60); RDW 15.5 % (11.9-15.9); WHITE BLOOD COUNT 3.8 K/mm3 (4.0-10.0)
[2021-09-08 12:07] LABS: CALCIUM 8.5 mg/dL (8.5-10.1)
[2021-09-08 12:08] LABS: BLOOD UREA NITROGEN 66.9 mg/dL (7-18); MAGNESIUM 2.4 mg/dL (1.8-2.4)
[2021-09-08 12:11] LABS: CREATININE 2.9 mg/dL (0.55-1.3); PHOSPHOROUS 3.8 mg/dL (2.5-4.9)
[2021-09-08 12:12] LABS: BILIRUBIN,TOTAL 0.5 mg/dL (0.2-1); TOT PROT 6.4 g/dl (6.4-8.2)
[2021-09-08] MEDS: ACETAMINOPHEN 325 MG TABLET (FP) PO PRN (13:33)
[2021-09-08] MEDS: ATORVASTATIN CA 40 MG TABLET (FP) PO SCH (21:36)
[2021-09-09] MEDS: ACETAMINOPHEN 325 MG TABLET (FP) PO PRN ×3 (04:33→22:40)
[2021-09-09] MEDS ORDERED: hydrALAZINE HCL 50 MG TABLET (FP) ONE ×3 (05:23→22:29)
[2021-09-09] MEDS ORDERED: hydrALAZINE HCL 25 MG TABLET (FP) ONE ×3 (05:23→22:29)
[2021-09-09] MEDS: HYDRALAZINE HCL PO SCH ×3 (05:46→22:33)
[2021-09-09] MEDS: HEPARIN NA (PORCINE) 5,000 UNITS/ML 1ML VIAL SQ SCH ×4 (05:46→22:47)
[2021-09-09] MEDS: TERAZOSIN HCL 5 MG CAPSULE PO SCH (10:34)
[2021-09-09] MEDS: levETIRAcetam 500 MG/5 ML ORAL SOLUTION (UNIT-DOSE CUPS) PO SCH ×2 (10:34→22:34)
[2021-09-09] MEDS: ISOSORBIDE MONONITRATE 30 MG TAB.SR.24H (FP) PO SCH (10:35)
[2021-09-09] MEDS: VITAMIN B COMP W-C 1 EA TABLET (NEPHRO-VITE) PO SCH (10:35)
[2021-09-09] MEDS: amLODIPine BESYLATE 10 MG TABLET (FP) PO SCH (10:35)
[2021-09-09 11:46] LABS: EOS % 5.3 % (0-4.5); HEMATOCRIT 24.6 % (35.4-49); LYMPH % 33.9 % (8-40); MCH 28.8 pg (25.7-33.7); MCHC 32.5 g/dl (32.0-35.9); MEAN CELL VOLUME 88.6 fl (80-96); MONO % 9.6 % (3.8-10.2); NEUT % 50.2 % (42.8-82.8); PLATELET COUNT 186 10^3/uL (134-434); RBC 2.78 M/mm3 (4.00-5.60); WHITE BLOOD COUNT 3.5 K/mm3 (4.0-10.0)
[2021-09-09 12:20] LABS: ALBUMIN 3.1 g/dl (3.4-5.0); CALCIUM 8.6 mg/dL (8.5-10.1); MAGNESIUM 2.4 mg/dL (1.8-2.4)
[2021-09-09 12:24] LABS: BILIRUBIN,TOTAL 0.2 mg/dL (0.2-1)
[2021-09-09 12:26] LABS: TOT PROT 6.7 g/dl (6.4-8.2)
[2021-09-09 12:27] LABS: PHOSPHOROUS 3.8 mg/dL (2.5-4.9)
[2021-09-09 12:35] LABS: EOS % 4.8 % (0-4.5); HEMATOCRIT 24.4 % (35.4-49); MCH 29.2 pg (25.7-33.7); MCHC 32.7 g/dl (32.0-35.9); MEAN CELL VOLUME 89.3 fl (80-96); MEAN PLT VOLUME 9.1 fl (7.5-11.1); MONO % 9.6 % (3.8-10.2); NEUT % 51.6 % (42.8-82.8); PLATELET COUNT 176 10^3/uL (134-434); RBC 2.74 M/mm3 (4.00-5.60); RDW 15.3 % (11.9-15.9); WHITE BLOOD COUNT 3.5 K/mm3 (4.0-10.0)
[2021-09-09] MEDS ORDERED: TRIAMCINOLONE ACET 40MG/1ML VIAL IJ ONE (19:57)
[2021-09-09] MEDS ORDERED: LIDOCAINE HCL/PF 2% SDV 5ML VIAL INF ONE (19:59)
[2021-09-09] MEDS: ATORVASTATIN CA 40 MG TABLET (FP) PO SCH (22:33)
[2021-09-09 23:35] LABS: BF WBC & OTHER NUCLEATED CELLS 211 /mm3; BODY FLUID MONOCYTE 8 %; BODYL FLD EOSINOPHIL 2 %
[2021-09-09 23:46] LABS: CRYSTALS,SYNOVIAL FLUID NEGATIVE
[2021-09-10] MEDS ORDERED: hydrALAZINE HCL 50 MG TABLET (FP) ONE (06:02)
[2021-09-10] MEDS ORDERED: hydrALAZINE HCL 25 MG TABLET (FP) ONE (06:02)
[2021-09-10] MEDS: HYDRALAZINE HCL PO SCH (06:22)
[2021-09-10] MEDS: HEPARIN NA (PORCINE) 5,000 UNITS/ML 1ML VIAL SQ SCH (06:24)
[2021-09-10 06:50] VITALS: BP 177/78; PULSE 80; TEMP 98
== END 2021-09-10 09:47 | DRG 193 ==
LOC: JER 21:44 → JERBED 23:41 → J4S 08-27 10:07 → J5S 09-05 00:33
PROVIDERS: ADMIT Internal Medicine; ATTEND Internal Medicine
PROC: 0W993ZZ Drainage of Right Pleural Cavity, Percutaneous Approach (ICD-10-PCS; principal; 2021-08-30)
PROC: 3E0U33Z Introduction of Anti-inflammatory into Joints, Percutaneous Approach (ICD-10-PCS; 2021-09-09)
DX: J18.9 Pneumonia, unspecified organism (principal); I50.31 Acute diastolic (congestive) heart failure; E43 Unspecified severe protein-calorie malnutrition; I13.0 Hypertensive heart and chronic kidney disease with heart failure and stage 1 through stage 4 chronic kidney disease, or unspecified chronic kidney disease; J90 Pleural effusion, not elsewhere classified; N18.4 Chronic kidney disease, stage 4 (severe); R64 Cachexia; N17.9 Acute kidney failure, unspecified; D64.9 Anemia, unspecified; G40.909 Epilepsy, unspecified, not intractable, without status epilepticus; R91.8 Other nonspecific abnormal finding of lung field; M10.9 Gout, unspecified; D72.10 Eosinophilia, unspecified; K21.9 Gastro-esophageal reflux disease without esophagitis; I27.20 Pulmonary hypertension, unspecified; I25.10 Atherosclerotic heart disease of native coronary artery without angina pectoris; E78.5 Hyperlipidemia, unspecified; F03.90 Unspecified dementia, unspecified severity, without behavioral disturbance, psychotic disturbance, mood disturbance, and anxiety; E87.70 Fluid overload, unspecified
CPT/HCPCS: 0241U-QW; 36415; 36600; 70450-TC; 71045-TC-FY; 71250-TC; 73564-TC-LT-FY; 76775-TC; 76942; 80053; 80061; 81003; 82042; 82150; 82272; 82465; 82550; 82553; 82728; 82803; 82945; 82962; 83540; 83550; 83605; 83615; 83735; 83880; 83986; 84100; 84157; 84436; 84443; 84466; 84484; 84550; 85025; 85610; 85651; 85730; 86140; 86480; 86850; 86900; 86901; 87040; 87070; 87075; 87086; 87102; 87116; 87205; 87206; 87210; 87389; 88108; 88305-TC; 89060; 93005; 93010; 93306-TC; 93970-TC; 97116-GP; 97161-GP; 99285-25; C9803-CS; G0480; J1644; U0003; U0005

== ENCOUNTER 2021-11-16 20:37 | Inpatient (IN) | payer OTHER ==
[2021-11-16] MEDS ORDERED: LORazepam 2 MG/ML SDV VIAL IM ONE (22:10)
[2021-11-16] MEDS ORDERED: levETIRAcetam 500 MG/5 ML INJECTION VIAL IVPB ONE ×2 (22:10→22:24)
[2021-11-16] MEDS ORDERED: SODIUM CHLORIDE 0.9% 500 ML INFUS.BAG IV ONE (22:28)
[2021-11-16 22:34] LABS: BASO % 0.2 % (0-2.0); HEMATOCRIT 25.7 % (35.4-49); HEMOGLOBIN 8.7 GM/dL (11.7-16.9); MCH 29.3 pg (25.7-33.7); MCHC 33.7 g/dl (32.0-35.9); MEAN PLT VOLUME 7.9 fl (7.5-11.1); NEUT % 78.8 % (42.8-82.8); PLATELET COUNT 149 10^3/uL (134-434); RBC 2.96 M/mm3 (4.00-5.60); RDW 15.4 % (11.9-15.9); WHITE BLOOD COUNT 6.3 K/mm3 (4.0-10.0)
[2021-11-16 22:43] LABS: INR 0.99 (0.83-1.09); PROTHROMBIN TIME (PATIENT) 11.4 SEC (9.7-13.0)
[2021-11-16 22:45] LABS: ACTIVATED PTT 31.5 SECONDS (25.2-36.5)
[2021-11-16 23:00] LABS: CALCIUM 8.4 mg/dL (8.5-10.1)
[2021-11-16 23:01] LABS: ALBUMIN 3.4 g/dl (3.4-5.0); BLOOD UREA NITROGEN 54.8 mg/dL (7-18)
[2021-11-16 23:04] LABS: CREATININE 3.3 mg/dL (0.55-1.3)
[2021-11-16 23:05] LABS: BILIRUBIN,TOTAL 0.2 mg/dL (0.2-1)
[2021-11-16 23:09] LABS: LACTIC ACID 4.1 mmol/L (0.4-2.0)
[2021-11-17 05:10] LABS: EPI CELLS 13 /uL (0-25.1); HYALINE CASTS 1 /uL (0-3.1); PH,URINE 5.5 (5.0-8.0); URINE APPEARANCE CLEAR; URINE BACTERIA 2 /uL (0-1359); URINE BILIRUBIN NEGATIVE (NEGATIVE); URINE COLOR YELLOW; URINE GLUCOSE (UA) NEGATIVE (NEGATIVE); URINE KETONE NEGATIVE (NEGATIVE); URINE LEUK ESTERASE NEGATIVE (NEGATIVE); URINE NITRITE NEGATIVE (NEGATIVE); URINE PROTEIN 3+ (NEGATIVE); URINE RBC 3 /uL (0-23.9); URINE UROBILINOGEN 0.2 mg/dL (0.2-1.0); URINE WBC 8 /uL (0-25.8)
[2021-11-17 09:04] LABS: BASO % 0.4 % (0-2.0); EOS % 1.5 % (0-4.5); HEMOGLOBIN 8.4 GM/dL (11.7-16.9); LYMPH % 10.7 % (8-40); MCH 29.2 pg (25.7-33.7); MCHC 33.6 g/dl (32.0-35.9); MEAN CELL VOLUME 86.8 fl (80-96); MEAN PLT VOLUME 7.7 fl (7.5-11.1); NEUT % 79.4 % (42.8-82.8); PLATELET COUNT 135 10^3/uL (134-434); RBC 2.88 M/mm3 (4.00-5.60); RDW 15.4 % (11.9-15.9); WHITE BLOOD COUNT 6.5 K/mm3 (4.0-10.0)
[2021-11-17] MEDS ORDERED: levETIRAcetam 500 MG/5 ML INJECTION VIAL IVPB ONE ×2 (09:06→21:46)
[2021-11-17] MEDS: DEXTROSE 5%-0.45% SALINE 1,000 ML IV SCH (09:14)
[2021-11-17 09:17] LABS: BLOOD UREA NITROGEN 50.5 mg/dL (7-18); CALCIUM 7.9 mg/dL (8.5-10.1); MAGNESIUM 1.6 mg/dL (1.8-2.4)
[2021-11-17 09:18] LABS: ALBUMIN 3.1 g/dl (3.4-5.0)
[2021-11-17 09:22] LABS: BILIRUBIN,TOTAL 0.2 mg/dL (0.2-1); TOT PROT 6.4 g/dl (6.4-8.2)
[2021-11-17] MEDS ORDERED: levETIRAcetam 500 MG/5 ML INJECTION VIAL IVPB SCH (10:00)
[2021-11-17] MEDS ORDERED: ACETAMINOPHEN INJECTION 100 ML IVPB ONE ×2 (14:31→22:18)
[2021-11-17] MEDS ORDERED: ACETAMINOPHEN 1000 MG/100 ML BAG IVPB ONE ×2 (14:35→21:48)
[2021-11-17] MEDS: levETIRAcetam 500 MG/5 ML INJECTION VIAL IVPB SCH (22:04)
[2021-11-18 02:07] VITALS: BMI 17.5
[2021-11-18] MEDS: DEXTROSE 5%-0.45% SALINE 1,000 ML IV SCH (09:06)
[2021-11-18] MEDS: levETIRAcetam 500 MG/5 ML INJECTION VIAL IVPB SCH ×2 (09:08→21:52)
[2021-11-18] MEDS: amLODIPine BESYLATE 10 MG TABLET (FP) PO SCH (09:08)
[2021-11-18] MEDS: METOPROLOL TARTRATE 50 MG TABLET (FP) PO SCH ×2 (09:08→21:51)
[2021-11-18] MEDS: ISOSORBIDE MONONITRATE 30 MG TAB.SR.24H (FP) PO SCH (09:09)
[2021-11-18 10:03] LABS: CALCIUM 8.5 mg/dL (8.5-10.1)
[2021-11-18 10:04] LABS: BLOOD UREA NITROGEN 47.3 mg/dL (7-18)
[2021-11-18 10:07] LABS: CREATININE 3.1 mg/dL (0.55-1.3)
[2021-11-18] MEDS ORDERED: DEXTROSE 5%-0.45% SALINE 1,000 ML IV SCH (10:33)
[2021-11-18] MEDS: hydrALAZINE HCL 25 MG TABLET (FP) PO SCH ×2 (13:43→21:51)
[2021-11-18] MEDS: SODIUM BICARBONATE 650 MG TABLET PO SCH ×2 (13:44→21:51)
[2021-11-18] MEDS ORDERED: ACETAMINOPHEN 325 MG TABLET (FP) PO ONE (21:36)
[2021-11-18] MEDS ORDERED: TERAZOSIN HCL 5 MG CAPSULE PO SCH (22:00)
[2021-11-18 22:56] VITALS: RESP 18
[2021-11-19] MEDS: SODIUM BICARBONATE 650 MG TABLET PO SCH ×2 (06:06→14:11)
[2021-11-19] MEDS: hydrALAZINE HCL 25 MG TABLET (FP) PO SCH ×2 (06:06→14:11)
[2021-11-19 08:50] LABS: BLOOD UREA NITROGEN 51.4 mg/dL (7-18); CALCIUM 7.7 mg/dL (8.5-10.1)
[2021-11-19 08:54] LABS: BILIRUBIN,TOTAL 0.4 mg/dL (0.2-1); CREATININE 3.1 mg/dL (0.55-1.3); TOT PROT 5.4 g/dl (6.4-8.2)
[2021-11-19 09:00] LABS: ALBUMIN 2.4 g/dl (3.4-5.0)
[2021-11-19] MEDS: ISOSORBIDE MONONITRATE 30 MG TAB.SR.24H (FP) PO SCH (09:21)
[2021-11-19] MEDS: METOPROLOL TARTRATE 50 MG TABLET (FP) PO SCH (09:22)
[2021-11-19] MEDS: amLODIPine BESYLATE 10 MG TABLET (FP) PO SCH (09:22)
[2021-11-19] MEDS ORDERED: levETIRAcetam 500 MG/5 ML ORAL SOLUTION (UNIT-DOSE CUPS) PO SCH (10:00)
[2021-11-19 14:01] VITALS: BP 147/72; PULSE 92; TEMP 97.5
[2021-11-19] MEDS ORDERED: PNEUMOC 20-VAL CONJ-DIP CRM/PF 0.5 ML SYRINGE IM ONE (15:11)
== END 2021-11-19 17:03 | DRG 101 ==
LOC: JER 20:37 → JERBED 11-17 00:21 → OBSVTOIN 11-17 00:44 → J4S 11-18 00:31
PROVIDERS: ADMIT Internal Medicine; ATTEND Family Medicine
DX: G40.909 Epilepsy, unspecified, not intractable, without status epilepticus (principal); R64 Cachexia; Z68.1 Body mass index [BMI] 19.9 or less, adult; E87.2 Acidosis; I25.10 Atherosclerotic heart disease of native coronary artery without angina pectoris; F03.90 Unspecified dementia, unspecified severity, without behavioral disturbance, psychotic disturbance, mood disturbance, and anxiety; D50.9 Iron deficiency anemia, unspecified; I12.9 Hypertensive chronic kidney disease with stage 1 through stage 4 chronic kidney disease, or unspecified chronic kidney disease; N18.30 Chronic kidney disease, stage 3 unspecified; K21.9 Gastro-esophageal reflux disease without esophagitis; N40.0 Benign prostatic hyperplasia without lower urinary tract symptoms; I27.20 Pulmonary hypertension, unspecified; F32.A Depression, unspecified; G62.9 Polyneuropathy, unspecified; E87.5 Hyperkalemia; R80.9 Proteinuria, unspecified; R00.0 Tachycardia, unspecified; R41.82 Altered mental status, unspecified; D64.9 Anemia, unspecified
CPT/HCPCS: 36415; 70450-TC; 71045-TC-FY; 72100-TC-FY; 72170-TC-FY; 80048; 80053; 80177; 81003; 82570; 82962; 83605; 83735; 84156; 84300; 84443; 84484; 85025; 85610; 85730; 86850; 86900; 86901; 87086; 90677; 93005; 93010; 99285-25; C9803-CS; G0378; U0003; U0005